=== PATIENT | female | born 1990 | race Caucasian/White ===

== ENCOUNTER 2016-02-08 18:08 | Emergency (ER) | payer MEDICAID ==
[~2016-02-08] VITALS: Ht 172.7 cm; Wt 55.0 kg
[~2016-02-08 18:08] MED LIST: NAPR500 PO; XANA0.5T PO; ZOFR4TAB3 SL
[2016-02-08 18:10] VITALS: BP 135/65; PULSE 98; RESP 14; TEMP 98.1; O2SAT 99
[2016-02-08 18:51] LABS: BACTERIA, URINE RARE /hpf; BLOOD, URINE LARGE (NEG); COMMENT (UR) CULT NOT INDICATED; CULTURE IF INDICATED CULT NOT INDICATED; GLUCOSE,URINE NEG (NEG); KETONE, URINE 150 mg/dL (NEG); MUCUS URINE MOD /lpf (OCC); NITRITE,URINE NEG (NEG); PH, URINE 5.5 (5.0-8.5); SQUAMOUS EPITHELIAL CELL URINE 1 /hpf (0-5); URINE COLOR YELLOW (YELLW/STRAW)
[2016-02-08 18:58] LABS: AUTOMATED NEUTROPHIL # 7.4 TH/MM3 (1.8-7.7); BASOPHIL % 0.3 % (0.0-2.0); EOSINOPHIL # 0.1 TH/MM3 (0-0.4); HEMATOCRIT 41.5 % (35.0-46.0); HEMO FLAGS DIFF FINAL; LYMPHOCYTE # 1.7 TH/MM3 (1.0-4.8); MEAN CELL VOLUME 88.8 FL (80.0-100.0); MEAN CORPUSCULAR HEMOGLOBIN 30.9 PG (27.0-34.0); MEAN CORPUSCULAR HGB CONC 34.8 % (32.0-36.0); MONO % 5.5 % (0.0-8.0); NEUT % 76.2 % (16.0-70.0); PLATELET COUNT 238 TH/MM3 (150-450); RED BLOOD COUNT 4.67 MIL/MM3 (4.00-5.30); RED CELL DISTRIBUTION WIDTH 12.3 % (11.6-17.2); WHITE BLOOD COUNT 9.8 TH/MM3 (4.0-11.0)
[2016-02-08 19:17] LABS: ANION GAP 9 MEQ/L (5-15); AST (GOT) 18 U/L (15-37); BLOOD UREA NITROGEN 10 MG/DL (7-18); CHLORIDE 104 MEQ/L (98-107); GLOMERULAR FILTRATION RATE 102 ML/MIN (>89); SODIUM (NA) 139 MEQ/L (136-145)
[2016-02-08 19:20] LABS: ALKALINE PHOSPHATASE 71 U/L (45-117); ALT (GPT) 20 U/L (10-53); TOTAL BILIRUBIN ADULT 1.8 MG/DL (0.2-1.0)
== END 2016-02-08 20:29 | disposition left against medical advice (07) ==
LOC: NED 18:08
DX: Z53.21 Procedure and treatment not carried out due to patient leaving prior to being seen by health care provider (principal)
CPT/HCPCS: 80053; 81001; 83690; 84703; 85025; 99281

== ENCOUNTER 2016-06-30 18:15 | Observation (INO) | payer MEDICAID, OTHER ==
[~2016-06-30] VITALS: Ht 172.7 cm; Wt 56.2 kg
[2016-06-30] VITALS (7 sets, daily range): BP systolic 94–125; BP diastolic 65–82; PULSE 68–96; RESP 16–18; TEMP 97.9; O2SAT 97–98
[2016-06-30] MEDS ORDERED: SODIUM CHLOR 0.9% 1000 ML INJ 1,000 ML IV SCH ×2 (18:42→23:05)
[2016-06-30] MEDS ORDERED: HYDROmorphone HCL PF 1 MG/ML VIAL IVS ONE (18:45)
[2016-06-30] MEDS ORDERED: SODIUM CHLORIDE 0.9% FLUSH 10 ML FLUSH IV FLUSH PRN ×2 (18:45→23:15)
[2016-06-30] MEDS ORDERED: ONDANSETRON HCL 4 MG/2 ML VIAL IVP ONE (18:45)
[2016-06-30 18:56] LABS: BLOOD, URINE LARGE (NEG); GLUCOSE,URINE NEG (NEG); KETONE, URINE TRACE mg/dL (NEG); NITRITE,URINE NEG (NEG)
[2016-06-30 19:00] LABS: MUCUS URINE MOD /lpf (OCC); URINE COLOR YELLOW (YELLW/STRAW)
[2016-06-30 19:01] LABS: COMMENT (UR) CULT NOT INDICATED; CULTURE IF INDICATED CULT NOT INDICATED; RBC, URINE 0-3 /hpf (0-3); SQUAMOUS EPITHELIAL CELL URINE 0-5 /hpf (0-5); WBC, URINE 0-2 /hpf (0-5)
[2016-06-30 19:09] LABS: AUTOMATED NEUTROPHIL # 9.5 TH/MM3 (1.8-7.7); BASOPHIL % 0.4 % (0.0-2.0); EOSINOPHIL # 0.1 TH/MM3 (0-0.4); HEMATOCRIT 43.9 % (35.0-46.0); HEMO FLAGS DIFF FINAL; LYMPH % 14.4 % (9.0-44.0); LYMPHOCYTE # 1.7 TH/MM3 (1.0-4.8); MEAN CELL VOLUME 87.7 FL (80.0-100.0); MEAN CORPUSCULAR HGB CONC 34.2 % (32.0-36.0); MONO % 3.8 % (0.0-8.0); NEUT % 80.4 % (16.0-70.0); PLATELET COUNT 318 TH/MM3 (150-450); RED BLOOD COUNT 5.01 MIL/MM3 (4.00-5.30); RED CELL DISTRIBUTION WIDTH 11.6 % (11.6-17.2); WHITE BLOOD COUNT 11.7 TH/MM3 (4.0-11.0)
--- NOTE | 2016-06-30 19:13 | PD ---
HPI Chief Complaint: GI Complaint Time Seen by Provider: 18:42 Travel History International Travel<30 days: No Contact w/Intl Traveler<30days: No Traveled to known affect area: No History of Present Illness HPI 25-year-old female patient presents to the ER today with 1 week history of cough , cold symptoms, followed by nausea, vomiting, and abdominal pains. She also has been having headaches. She denies any diarrhea, fevers, or other symptoms. Patient states that she is having multiple episodes of vomiting, states that she had tried to deal with at home but cannot. Modifying Factors: None Associated Signs & Symptoms: Nausea, vomiting, abdominal pains, headaches Risk Factors: None PFSH Past Medical History Diminished Hearing: No Musculoskeletal: Yes (KNEE ISSUES) Influenza Vaccination: Yes ?: Unknown LMP: NOW MIRENA : 2 Para: 2 Social History Alcohol Use: No Tobacco Use: No Substance Use: No Allergies-Medications (Allergen,Severity, Reaction): Coded Allergies: No Known Allergies (Verified , 06/30/16) Reported Meds & Prescriptions Reported Meds & Active Scripts Active No Active Prescriptions or Reported Medications Review of Systems Except as stated in HPI: all other systems reviewed are Neg Physical Exam Narrative GENERAL: Well-developed thin young female patient who is currently in moderate distress. Awake and oriented 3. SKIN: Focused skin assessment warm/dry. HEAD: Atraumatic. Normocephalic. EYES: Pupils equal and round. No scleral icterus. No injection or drainage. ENT: No nasal bleeding or discharge. Mucous membranes pink and moist. NECK: Trachea midline. No JVD. CARDIOVASCULAR: Regular rate and rhythm. No murmur appreciated. RESPIRATORY: No accessory muscle use. Clear to auscultation. Breath sounds equal bilaterally. GASTROINTESTINAL: Abdomen soft, right lower quadrant tenderness without guarding or rebound, nondistended. Hepatic and splenic margins not palpable. MUSCULOSKELETAL: No obvious deformities. No clubbing. No cyanosis. No edema. NEUROLOGICAL: Awake and alert. No obvious cranial nerve deficits. Motor grossly within normal limits. Normal speech. PSYCHIATRIC: Appropriate mood and affect; insight and judgment normal. Data Data Last Documented VS Vital Signs Date Time Temp Pulse Resp B/P Pulse Ox O2 Delivery O2 Flow Rate FiO2 06/30/16 18:25 97.9 94 16 116/76 98 Orders Complete Blood Count With Diff (06/30/16 18:42) Comprehensive Metabolic Panel (06/30/16 18:42) Lipase (06/30/16 18:42) Urinalysis - C+S If Indicated (06/30/16 18:42) Ct Abd/Pel W Iv Contrast(Rout) (06/30/16 18:42) Iv Access Insert/Monitor (06/30/16 18:42) Ecg Monitoring (06/30/16 18:42) Oximetry (06/30/16 18:42) Ondansetron Inj (Zofran Inj) (06/30/16 18:45) Sodium Chlor 0.9% 1000 Ml Inj (Ns 1000 M (06/30/16 18:42) Sodium Chloride 0.9% Flush (Ns Flush) (06/30/16 18:45) Hydromorphone Pf Inj (Dilaudid Pf Inj) (06/30/16 18:45) Ed Urine Pregnancytest Poc (06/30/16 18:42) Labs Laboratory Tests Test 06/30/16 06/30/16 18:45 18:50 Urine Color YELLOW Urine Turbidity CLEAR Urine pH 6.0 Urine Specific [place] 1.023 Urine Protein NEG mg/dL Urine Glucose (UA) NEG mg/dL Urine Ketones TRACE mg/dL Urine Occult Blood LARGE Urine Nitrite NEG Urine Bilirubin NEG Urine Leukocyte Esterase NEG Urine RBC 0-3 /hpf Urine WBC 0-2 /hpf Urine Squamous Epithelial 0-5 /hpf Cells Urine Mucus MOD /lpf Microscopic Urinalysis Comment CULT NOT INDICATED White Blood Count 11.7 TH/MM3 Red Blood Count 5.01 MIL/MM3 Hemoglobin 15.0 GM/DL Hematocrit 43.9 % Mean Corpuscular Volume 87.7 FL Mean Corpuscular Hemoglobin 30.0 PG Mean Corpuscular Hemoglobin 34.2 % Concent Red Cell Distribution Width 11.6 % Platelet Count 318 TH/MM3 Mean Platelet Volume 7.3 FL Neutrophils (%) (Auto) 80.4 % Lymphocytes (%) (Auto) 14.4 % Monocytes (%) (Auto) 3.8 % Eosinophils (%) (Auto) 1.0 % Basophils (%) (Auto) 0.4 % Neutrophils # (Auto) 9.5 TH/MM3 Lymphocytes # (Auto) 1.7 TH/MM3 Monocytes # (Auto) 0.4 TH/MM3 Eosinophils # (Auto) 0.1 TH/MM3 Basophils # (Auto) 0.0 TH/MM3 CBC Comment DIFF FINAL Differential Comment Sodium Level 143 MEQ/L Potassium Level 3.6 MEQ/L Chloride Level 106 MEQ/L MDM Medical Decision Making Medical Screen Exam Complete: Yes Emergency Medical Condition: Yes Medical Record Reviewed: Yes Differential Diagnosis Nausea, vomiting, right lower quadrant abdominal pains, headachesviral syndrome versus dehydration versus metabolic issues versus gastroenteritis versus appendicitis versus UTI/pyelonephritis Narrative Course IV fluids, pain medications, lab work, and CAT scans were ordered for the patient. Physician Communication Physician Communication Case is signed out to Dr. Gutierrez at 7 PM pending workup. Disposition based on workup. Diagnosis Primary Impression: Nausea and vomiting Scripts No Active Prescriptions or Reported Meds Stephan Radford MD June 30, 2016 19:13
[2016-06-30 19:14] LABS: CHLORIDE 106 MEQ/L (98-107); POTASSIUM 3.6 MEQ/L (3.5-5.1); SODIUM (NA) 143 MEQ/L (136-145)
--- NOTE | 2016-06-30 19:17 | PD ---
Physical Exam Date Seen by Provider: June 30, 2016 Time Seen by Provider: 19:15 Narrative accepted in transfer of care from Dr Radford GENERAL: Well developed well-nourished female in obvious discomfort and no respiratory distress. CARDIOVASCULAR: Regular rate and rhythm without murmurs, gallops, or rubs. RESPIRATORY: Breath sounds equal bilaterally. No accessory muscle use. GASTROINTESTINAL: Abdomen soft, reproducible right lower quadrant tenderness with voluntary guarding or rebound, nondistended. . Data Data Last Documented VS Vital Signs Date Time Temp Pulse Resp B/P Pulse Ox O2 Delivery O2 Flow Rate FiO2 06/30/16 22:55 68 17 125/82 97 Room Air 06/30/16 18:25 97.9 Orders Complete Blood Count With Diff (06/30/16 18:42) Comprehensive Metabolic Panel (06/30/16 18:42) Lipase (06/30/16 18:42) Urinalysis - C+S If Indicated (06/30/16 18:42) Ct Abd/Pel W Iv Contrast(Rout) (06/30/16 18:42) Iv Access Insert/Monitor (06/30/16 18:42) Ecg Monitoring (06/30/16 18:42) Oximetry (06/30/16 18:42) Ondansetron Inj (Zofran Inj) (06/30/16 18:45) Sodium Chlor 0.9% 1000 Ml Inj (Ns 1000 M (06/30/16 18:42) Sodium Chloride 0.9% Flush (Ns Flush) (06/30/16 18:45) Hydromorphone Pf Inj (Dilaudid Pf Inj) (06/30/16 18:45) Ed Urine Pregnancytest Poc (06/30/16 18:42) Ondansetron Inj (Zofran Inj) (06/30/16 20:00) Iohexol 350 Inj (Omnipaque 350 Inj) (06/30/16 20:00) Metoclopramide Inj (Reglan Inj) (06/30/16 21:00) Hydromorphone Pf Inj (Dilaudid Pf Inj) (06/30/16 21:00) Sodium Chlorid 0.9% 500 Ml Inj (Ns 500 M (06/30/16 21:00) NPO (06/30/16 20:55) Us Abdomen Gallbladder (06/30/16 ) Us Pelvis Comp W Doppler (06/30/16 ) Promethazine Supp (Phenergan Supp) (06/30/16 22:45) D5-Ns + Kcl 20 Meq Inj (D5-Ns + Kcl 20 M (06/30/16 22:45) Place In Observation (06/30/16 ) Vital Signs (Adult) Q4H (06/30/16 23:05) Activity Oob With Assistance (06/30/16 23:05) Dinkey Engine Operator / Telemetry .CONTINUOUS (06/30/16 23:05) Diet Npo (07/01/16 Breakfast) Sodium Chlor 0.9% 1000 Ml Inj (Ns 1000 M (06/30/16 23:05) Sodium Chloride 0.9% Flush (Ns Flush) (06/30/16 23:15) Sodium Chloride 0.9% Flush (Ns Flush) (07/01/16 09:00) Ondansetron Inj (Zofran Inj) (06/30/16 23:15) Comprehensive Metabolic Panel (07/01/16 06:00) Complete Blood Count With Diff (07/01/16 06:00) Lipase (07/01/16 06:00) Naloxone Inj (Narcan Inj) (06/30/16 23:15) Metoclopramide Inj (Reglan Inj) (06/30/16 23:15) Admit Order (Ed Use Only) (06/30/16 ) ^ Saline Lock (06/30/16 23:07) Resp Oxygen Matthew C Titrat 1-4 L (06/30/16 ) Notify Dr: Other (06/30/16 23:07) Sodium Chloride 0.9% Flush (Ns Flush) (07/01/16 09:00) Sodium Chloride 0.9% Flush (Ns Flush) (06/30/16 23:15) Consult General Surgery (06/30/16 23:07) Labs Laboratory Tests Test 06/30/16 06/30/16 18:45 18:50 Urine Color YELLOW Urine Turbidity CLEAR Urine pH 6.0 Urine Specific [place] 1.023 Urine Protein NEG mg/dL Urine Glucose (UA) NEG mg/dL Urine Ketones TRACE mg/dL Urine Occult Blood LARGE Urine Nitrite NEG Urine Bilirubin NEG Urine Leukocyte Esterase NEG Urine RBC 0-3 /hpf Urine WBC 0-2 /hpf Urine Squamous Epithelial 0-5 /hpf Cells Urine Mucus MOD /lpf Microscopic Urinalysis Comment CULT NOT INDICATED White Blood Count 11.7 TH/MM3 Red Blood Count 5.01 MIL/MM3 Hemoglobin 15.0 GM/DL Hematocrit 43.9 % Mean Corpuscular Volume 87.7 FL Mean Corpuscular Hemoglobin 30.0 PG Mean Corpuscular Hemoglobin 34.2 % Concent Red Cell Distribution Width 11.6 % Platelet Count 318 TH/MM3 Mean Platelet Volume 7.3 FL Neutrophils (%) (Auto) 80.4 % Lymphocytes (%) (Auto) 14.4 % Monocytes (%) (Auto) 3.8 % Eosinophils (%) (Auto) 1.0 % Basophils (%) (Auto) 0.4 % Neutrophils # (Auto) 9.5 TH/MM3 Lymphocytes # (Auto) 1.7 TH/MM3 Monocytes # (Auto) 0.4 TH/MM3 Eosinophils # (Auto) 0.1 TH/MM3 Basophils # (Auto) 0.0 TH/MM3 CBC Comment DIFF FINAL Differential Comment Sodium Level 143 MEQ/L Potassium Level 3.6 MEQ/L Chloride Level 106 MEQ/L Carbon Dioxide Level 28.3 MEQ/L Anion Gap 9 MEQ/L Blood Urea Nitrogen 10 MG/DL Creatinine 0.77 MG/DL Estimat Glomerular Filtration 91 ML/MIN Rate Random Glucose 109 MG/DL Calcium Level 9.3 MG/DL Total Bilirubin 1.0 MG/DL Aspartate Amino Transf 21 U/L (AST/SGOT) Alanine Aminotransferase 24 U/L (ALT/SGPT) Alkaline Phosphatase 59 U/L Total Protein 8.1 GM/DL Albumin 4.3 GM/DL Lipase 107 U/L [facility] Medical Record Reviewed: Yes Supervised Visit with CAROLINE: No Interpretation(s) Vital Signs Date Time Temp Pulse Resp B/P Pulse Ox O2 Delivery O2 Flow Rate FiO2 06/30/16 20:40 84 16 117/74 98 Room Air 06/30/16 20:00 82 18 111/70 98 Room Air 06/30/16 19:41 16 06/30/16 19:16 90 18 94/65 98 Room Air 06/30/16 18:25 97.9 94 16 116/76 98 Last Impressions Abdomen/Pelvis CT 06/30/16 0472 Signed Impressions: Service Date/Time: June 19:42 - CONCLUSION: 1. Nonspecific mild hepatomegaly. 2. Pericholecystic fluid without perceptible significant wall thickening. Potentially some sludge or small stones but no evidence of biliary obstruction. 3. 32 mm benign-appearing right adnexal cyst. Wojciech Linares MD Pelvis Ultrasound 06/30/16 0000 Signed Impressions: Service Date/Time: June 21:54 - CONCLUSION: Benign- appearing cyst of the right ovary. If felt clinically indicated, followup pelvic ultrasound in 8-12 weeks suggested to confirm resolution. Otherwise normal study. No torsion. No free fluid. Wojciech Linares MD Gall Bladder Ultrasound 06/30/16 0000 Signed Impressions: Service Date/Time: June 21:45 - CONCLUSION: Small pericholecystic fluid, nonspecific but without wall thickening or sonographic Parada's sign. No stone or ductal dilatation demonstrated. Mild nonspecific hepatomegaly. Wojciech Linares MD CBC & BMP Diagram 06/30/16 18:50 Vital Signs Date Time Temp Pulse Resp B/P Pulse Ox O2 Delivery O2 Flow Rate FiO2 06/30/16 20:40 84 16 117/74 98 Room Air 06/30/16 20:00 82 18 111/70 98 Room Air 06/30/16 19:41 16 06/30/16 19:16 90 18 94/65 98 Room Air 06/30/16 18:25 97.9 94 16 116/76 98 Differential Diagnosis accepted in transfer of care from Dr Radford; please refer to her dictation Narrative Course accepted in transfer of care from Dr Radford; for follow up of pending labs, CT, medication response, and disposition Patient has received order for Dilaudid 1 mg IV Zofran 4 mg IV and 1 L normal saline bolus Lab values pending patient continues complaining of nausea additional Zofran 4 mg administered Lab values grossly in normal range except for mild left shift 80% neutrophils by automated differential; noeov-[id number] test is negative CT abdomen and pelvis resulted per reading radiologist some gallbladder sludge and possible mild pericholecystic fluid otherwise no acute findings of except for right ovarian cyst; patient reexamined continues to complain of localized right lower quadrant pain and has reproducible right lower quadrant tenderness no right upper quadrant tenderness and no clinical Parada sign. Transvaginal pelvic ultrasound ordered along with Doppler to assess for ovarian torsion in view of report of mild pericholecystic fluid will add gallbladder ultrasound as well. Patient given additional Dilaudid 0.5 mg IV along with 500 cc normal saline as well as Reglan 10 mg IV and remains nothing by mouth. Pelvic exam performed: Normal external exam no redness induration or lesions; speculum exam scant dark blood no clots no tissue cervical os closed no IUD string noted; bimanual exam tenderness to palpation right adnexa no cervical motion tenderness bilaterally no adnexal masses to palpation. Patient with ultrasound studies pending plan for observation admission with consult to general surgery will keep patient on IV fluids pain management subsequently nothing by mouth and IV antibiotics. @ 22:35 she studies resulted no torsion mild pericholecystic fluid without, wall thickening or ductal dilatation. Case discussed with on-call medicine patient remains afebrile in the emergency department medicine agrees to the patient for intractable vomiting and nausea with possible early cholecystitis Dr Garcia requests no blood cultures or antibiotic administration for medicine until patient does evidence of temperature elevation/fever which time blood cultures will be obtained and start antibiotic per Dr Garcia. Patient is aware of plan for OBS admission and is agreeable to stay. Physician Communication Physician Communication call placed to General surgery -- discussed with Dr Lee--agrees w US will see in consultation admit to MED; discussed with Dr Garcia will OBS admit Diagnosis Primary Impression: Nausea and vomiting Qualified Code: R11.2 - Intractable vomiting with nausea, unspecified vomiting type Admitting Information Admitting Physician Requests: Observation Scripts No Active Prescriptions or Reported Meds Keke Gutierrez MD June 30, 2016 19:17
[2016-06-30 19:18] LABS: ANION GAP 9 MEQ/L (5-15); BICARBONATE 28.3 MEQ/L (21.0-32.0); BLOOD UREA NITROGEN 10 MG/DL (7-18)
[2016-06-30 19:20] LABS: ALT (GPT) 24 U/L (10-53)
[2016-06-30 19:21] LABS: AST (GOT) 21 U/L (15-37); GLOMERULAR FILTRATION RATE 91 ML/MIN (>89)
[2016-06-30 19:23] LABS: ALKALINE PHOSPHATASE 59 U/L (45-117)
[2016-06-30] MEDS ORDERED: IOHEXOL 350 MG/ML 10 ML VIAL (for RAD DIAG) IV ONE (20:00)
[2016-06-30] MEDS ORDERED: ONDANSETRON HCL 4 MG/2 ML VIAL IV PUSH ONE (20:00)
--- NOTE | 2016-06-30 20:14 | RADHPO ---
EXAM DATE/TIME: 06/30/2016 19:42 [facility] COMPARISON: No previous studies available for comparison. INDICATIONS : Abdominal cramping. Nausea and vomiting. IV CONTRAST: 100 cc Omnipaque 350 (iohexol) IV ORAL CONTRAST: No oral contrast ingested. RADIATION DOSE: 5.68 CTDIvol (mGy) MEDICAL HISTORY : None SURGICAL HISTORY : Intrauterine device. ENCOUNTER: Initial ACUITY: 2 days PAIN SCALE: 5/10 LOCATION: Bilateral upper quadrant TECHNIQUE: Volumetric scanning of the abdomen and pelvis was performed. Using automated exposure control and ad justment of the mA and/or kV according to patient size, radiation dose was kept as low as reasonably achievable to obtain optimal diagnostic quality images. FINDINGS: LOWER LUNGS: The visualized lower lungs are clear. LIVER: Liver is mildly enlarged, measures approximately 20 cm craniocaudal. There is focal fatty infiltratio n adjacent to the falciform ligament. No focal hepatic lesion demonstrated. Mild periportal edema is demonstrated. Pericholecystic fluid is noted. I don't see that the wall is clearly thickened or signi ficantly inflamed. Slightly higher attenuation dependently within the gallbladder lumen suggesting th e possibility of sludge or even small gravel-like stones. No large calculus demonstrated. There is no ductal dilatation seen. SPLEEN: Normal size without lesion. PANCREAS: Within normal limits. KIDNEYS: Normal in size and shape. There is no mass, stone or hydronephrosis. ADRENAL GLANDS: Within normal limits. VASCULAR: There is no aortic aneurysm. BOWEL/MESENTERY: The stomach, small bowel, and colon demonstrate no acute abnormality. There is no free intraperitone al air or fluid. ABDOMINAL WALL: Within normal limits. RETROPERITONEUM: There is no lymphadenopathy. BLADDER: No wall thickening or mass. REPRODUCTIVE: There is a 32 mm cyst of the right ovary. No free fluid seen in the pelvic cavity. IUD present. INGUINAL: There is no lymphadenopathy or hernia. MUSCULOSKELETAL: Within normal limits for patient age. CONCLUSION: 1. Nonspecific mild hepatomegaly. 2. Pericholecystic fluid without perceptible significant wall thickening. Potentially some sludge or small stones but no evidence of biliary obstruction. 3. 32 mm benign-appearing right adnexal cyst. Wojciech Linares MD on June 30, 2016 at 20:08 Board Certified Radiologist. This report was verified electronically.
[2016-06-30] MEDS ORDERED: METOCLOPRAMIDE HCL 10 MG/2 ML VIAL IV PUSH ONE (21:00)
[2016-06-30] MEDS ORDERED: HYDROmorphone HCL PF 1 MG/ML VIAL IV PUSH ONE (21:00)
[2016-06-30] MEDS ORDERED: SODIUM CHLORID 0.9% 500 ML INJ 500 ML IV ONE (21:00)
--- NOTE | 2016-06-30 22:15 | RADHPO ---
EXAM DATE/TIME: 06/30/2016 21:45 [facility] COMPARISON: CT ABDOMEN & PELVIS W CONTRAST, June 30, 2016, 19:42. INDICATIONS : Right upper quadrant pain. Nausea and vomiting. MEDICAL HISTORY : Right upper quadrant pain. SURGICAL HISTORY : None. ENCOUNTER: Initial ACUITY: 1 week PAIN SCORE: 4/10 LOCATION: Right upper quadrant MEASUREMENTS: LIVER: 18.1 cm length COMMON DUCT: 2 mm RIGHT KIDNEY: 11.5 x 3.9 x 6.2 cm FINDINGS: LIVER: Normal echotexture without focal lesion or ductal dilatation. COMMON DUCT: No intraluminal mass or stone visualized. GALLBLADDER: Small pericholecystic fluid noted, mainly in between the gallbladder and liver. No gallbladder wall t hickening. No sludge or stones seen. Negative sonographic Parada's sign. PANCREAS: The visualized portions are within normal limits. RIGHT KIDNEY: No evidence of hydronephrosis, stone, or mass. CONCLUSION: Small pericholecystic fluid, nonspecific but without wall thickening or sonographic Parada's sign. No stone or ductal dilatation demonstrated. Mild nonspecific hepatomegaly. Wojciech Linares MD on June 30, 2016 at 22:11 Board Certified Radiologist. This report was verified electronically.
--- NOTE | 2016-06-30 22:21 | RADHPO ---
EXAM DATE/TIME: 06/30/2016 21:54 [facility] COMPARISON: US ABDOMEN - GALLBLADDER, June 30, 2016, 21:45. CT ABDOMEN & PELVIS W CONTRAST, June 30, 2016, 19:42. INDICATIONS : Pelvic pain. MEDICAL HISTORY : Pelvic pain. SURGICAL HISTORY : None. ENCOUNTER: Initial ACUITY: 1 week PAIN SCORE: 5/10 LOCATION: Right pelvis MEASUREMENTS: UTERUS: 7.1 x 2.9 x 5.4 cm ENDOMETRIAL STRIPE: 8 mm RIGHT OVARY: 3.8 x 4.0 x 3.6 cm LEFT OVARY: 3.1 x 2.7 x 1.9 cm FINDINGS: UTERUS: The myometrium has homogeneous echotexture without mass. IUD present. RIGHT OVARY: There is a right ovarian cyst that measures 3.2 x 2.7 x 2.8 cm. Blood flow demonstrated within the ov starr parenchyma. LEFT OVARY: Ovary contains no mass or significant cystic lesion.There is blood flow to the left ovary. MISCELLANEOUS: No free fluid. CONCLUSION: Benign-appearing cyst of the right ovary. If felt clinically indicated, followup pelvic ultrasound in 8-12 weeks suggested to confirm resolution. Otherwise normal study. No torsion. No free fluid. Wojciech Linares MD on June 30, 2016 at 22:17 Board Certified Radiologist. This report was verified electronically.
[2016-06-30] MEDS ORDERED: D5-NS + KCL 20 MEQ INJ 1,000 ML IV SCH (22:45)
[2016-06-30] MEDS ORDERED: PROMETHAZINE HCL 25 MG SUPP RECTAL ONE (22:45)
[2016-06-30] MEDS ORDERED: METOCLOPRAMIDE HCL 10 MG/2 ML VIAL IV PUSH PRN (23:15)
[2016-06-30] MEDS ORDERED: NALOXONE HCL 0.4 MG/ML AMP IV PRN (23:15)
[2016-06-30] MEDS ORDERED: SODIUM CHLORIDE 0.9% FLUSH 10 ML FLUSH IVF PRN (23:15)
[2016-07-01] VITALS (12 sets, daily range): BP systolic 100–136; BP diastolic 69–86; PULSE 62–88; RESP 17–20; TEMP 96.6–97.9; O2SAT 98–100
[2016-07-01] MEDS: ONDANSETRON HCL 4 MG/2 ML VIAL IVP PRN ×2 (01:08→19:26)
[2016-07-01 06:51] LABS: CHLORIDE 109 MEQ/L (98-107); POTASSIUM 3.8 MEQ/L (3.5-5.1); SODIUM (NA) 143 MEQ/L (136-145)
[2016-07-01 06:58] LABS: BASOPHIL % 0.4 % (0.0-2.0); EOSINOPHIL % 0.5 % (0.0-4.0); HEMATOCRIT 38.5 % (35.0-46.0); HEMO FLAGS DIFF FINAL; LYMPH % 13.1 % (9.0-44.0); LYMPHOCYTE # 1.2 TH/MM3 (1.0-4.8); MEAN CORPUSCULAR HEMOGLOBIN 30.3 PG (27.0-34.0); MONO % 3.2 % (0.0-8.0); NEUT % 82.8 % (16.0-70.0); PLATELET COUNT 294 TH/MM3 (150-450); RED BLOOD COUNT 4.32 MIL/MM3 (4.00-5.30); RED CELL DISTRIBUTION WIDTH 11.9 % (11.6-17.2); WHITE BLOOD COUNT 9.5 TH/MM3 (4.0-11.0)
[2016-07-01 06:59] LABS: AST (GOT) 14 U/L (15-37)
[2016-07-01 07:04] LABS: ALKALINE PHOSPHATASE 47 U/L (45-117); ALT (GPT) 18 U/L (10-53); ANION GAP 7 MEQ/L (5-15); BICARBONATE 27.4 MEQ/L (21.0-32.0); BLOOD UREA NITROGEN 9 MG/DL (7-18); GLOMERULAR FILTRATION RATE 129 ML/MIN (>89); TOTAL BILIRUBIN ADULT 1.1 MG/DL (0.2-1.0)
[2016-07-01] MEDS: SODIUM CHLORIDE 0.9% FLUSH 10 ML FLUSH IV FLUSH SCH ×2 (09:00→22:05)
[2016-07-01] MEDS ORDERED: SODIUM CHLORIDE 0.9% FLUSH 10 ML FLUSH IV FLUSH SCH (09:00)
--- NOTE | 2016-07-01 09:12 | PD.CONS ---
cc: Jamie Lee MD HPI Service General Surgery Consult Requested By Dr. Gutierrez Reason for Consult Evaluation of abdominal pain Primary Care Physician No Primary Care Physician History of Present Illness This is a 25-year-old female with no past medical history or surgical history. She developed cold-like symptoms and abdominal pain approximately 1 week ago. She reports chills and subjective fevers. She was unable to take her temperature at home as she does not have a thermometer. She comes to the emergency department for evaluation of her abdominal pain which has not resolved over the past week. The pain was a 9/10, sharp, located right lower quadrant, worse with movement, better with pain meds. A pelvic ultrasound was obtained which showed a benign-appearing right ovarian cyst. A gallbladder ultrasound was also obtained which showed a small amount of pericholecystic fluid without wall thickening or sign of radiographic Parada sign. A CT abdomen and pelvis was also obtained which showed pericholecystic fluid without wall thickening, sludge and small stones with no biliary obstruction. Her white blood cell count is 9.5. Her total bilirubin is only mildly elevated at 1.1. A General Surgery consultation has been requested for evaluation of abdominal pain. Review of Systems Constitutional: COMPLAINS OF: Fatigue, Chills Endocrine: DENIES: Polydipsia, Polyuria, Polyphagia Eyes: DENIES: Blurred vision, Diplopia Ears, nose, mouth, throat: DENIES: Hearing loss Respiratory: DENIES: Apneas Cardiovascular: DENIES: Chest pain, Syncope Gastrointestinal: COMPLAINS OF: Abdominal pain, Nausea Genitourinary: DENIES: Urinary frequency, Urinary incontinence Musculoskeletal: DENIES: Joint pain Integumentary: DENIES: Abnormal pigmentation Hematologic/lymphatic: DENIES: Bruising Immunologic/allergic: DENIES: Eczema Neurologic: DENIES: Abnormal gait, Headache Psychiatric: DENIES: Confusion, Mood changes, Depression Past Family Social History Past Medical History None Past Surgical History None Reported Medications None Allergies: Coded Allergies: Percocet (Verified Allergy, Severe, SEIZURE, 07/10/16) Active Ordered Medications Current Medications Medications (Trade) Dose Ordered Sig/Vicenta Route Start Time Stop Time Status Last Admin (NS 1000 ml Inj) 1,000 ml @ 100 mls/hr Q10H IV 06/30/16 23:05 06/30/16 23:12 (NS Flush) 2 ml UNSCH PRN IV FLUSH 06/30/16 23:15 (NS Flush) 2 ml BID IV FLUSH 07/01/16 09:00 (Zofran Inj) 4 mg Q6H PRN IVP 06/30/16 23:15 07/01/16 01:08 (Narcan Inj) 0.4 mg UNSCH PRN IV 06/30/16 23:15 (Reglan Inj) 10 mg Q8H PRN IV PUSH 06/30/16 23:15 Family History Noncontributory Social History Denies tobacco use Denies EtOH use Denies illicit drug use Physical Exam Vital Signs Vital Signs Date Time Temp Pulse Resp B/P Pulse Ox O2 Delivery O2 Flow Rate FiO2 07/01/16 08:00 96.6 71 20 102/69 100 07/01/16 03:45 97.3 62 20 117/82 100 07/01/16 03:27 86 07/01/16 03:23 75 17 110/70 07/01/16 01:10 88 17 110/72 99 Room Air 06/30/16 23:12 98 06/30/16 22:55 68 17 125/82 97 Room Air 06/30/16 21:42 16 06/30/16 21:35 96 18 115/78 98 Room Air 06/30/16 20:40 84 16 117/74 98 Room Air 06/30/16 20:00 82 18 111/70 98 Room Air 06/30/16 19:41 16 06/30/16 19:16 90 18 94/65 98 Room Air 06/30/16 18:25 97.9 94 16 116/76 98 Physical Exam GENERAL: 25-year-old female resting in bed in no acute distress SKIN: Warm and dry. HEAD: Atraumatic. Normocephalic. EYES: Pupils equal and round. No scleral icterus. No injection or drainage. ENT: No nasal bleeding or discharge. Mucous membranes pink and moist. NECK: Trachea midline. CARDIOVASCULAR: Regular rate and rhythm. RESPIRATORY: No accessory muscle use. Clear to auscultation. Breath sounds equal bilaterally. GASTROINTESTINAL: Abdomen soft, nondistended. Right upper quadrant and right lower quadrant tenderness with palpation. No visible scars on abdomen. MUSCULOSKELETAL: Extremities without clubbing, cyanosis, or edema. No obvious deformities. NEUROLOGICAL: Awake and alert. No obvious cranial nerve deficits. Motor grossly within normal limits. Five out of 5 muscle strength in the arms and legs. Normal speech. PSYCHIATRIC: Appropriate mood and affect; insight and judgment normal. Laboratory Laboratory Tests Test 06/30/16 06/30/16 07/01/16 18:45 18:50 05:47 Urine Color YELLOW Urine Turbidity CLEAR Urine pH 6.0 Urine Specific [place] 1.023 Urine Protein NEG Urine Glucose (UA) NEG Urine Ketones TRACE Urine Occult Blood LARGE Urine Nitrite NEG Urine Bilirubin NEG Urine Leukocyte Esterase NEG Urine RBC 0-3 Urine WBC 0-2 Urine Squamous Epithelial 0-5 Cells Urine Mucus MOD Microscopic Urinalysis Comment CULT NOT INDICATED White Blood Count 11.7 9.5 Red Blood Count 5.01 4.32 Hemoglobin 15.0 13.1 Hematocrit 43.9 38.5 Mean Corpuscular Volume 87.7 89.0 Mean Corpuscular Hemoglobin 30.0 30.3 Mean Corpuscular Hemoglobin 34.2 34.0 Concent Red Cell Distribution Width 11.6 11.9 Platelet Count 318 294 Mean Platelet Volume 7.3 7.4 Neutrophils (%) (Auto) 80.4 82.8 Lymphocytes (%) (Auto) 14.4 13.1 Monocytes (%) (Auto) 3.8 3.2 Eosinophils (%) (Auto) 1.0 0.5 Basophils (%) (Auto) 0.4 0.4 Neutrophils # (Auto) 9.5 8.0 Lymphocytes # (Auto) 1.7 1.2 Monocytes # (Auto) 0.4 0.3 Eosinophils # (Auto) 0.1 0.0 Basophils # (Auto) 0.0 0.0 CBC Comment DIFF FINAL DIFF FINAL Differential Comment Sodium Level 143 143 Potassium Level 3.6 3.8 Chloride Level 106 109 Carbon Dioxide Level 28.3 27.4 Anion Gap 9 7 Blood Urea Nitrogen 10 9 Creatinine 0.77 0.57 Estimat Glomerular Filtration 91 129 Rate Random Glucose 109 104 Calcium Level 9.3 8.1 Total Bilirubin 1.0 1.1 Aspartate Amino Transf 21 14 (AST/SGOT) Alanine Aminotransferase 24 18 (ALT/SGPT) Alkaline Phosphatase 59 47 Total Protein 8.1 6.1 Albumin 4.3 3.1 Lipase 107 69 Imaging Last 48 hours Impressions Abdomen/Pelvis CT 06/30/16 1842 Signed Impressions: Service Date/Time: June 19:42 - CONCLUSION: 1. Nonspecific mild hepatomegaly. 2. Pericholecystic fluid without perceptible significant wall thickening. Potentially some sludge or small stones but no evidence of biliary obstruction. 3. 32 mm benign-appearing right adnexal cyst. Wojciech Linares MD Pelvis Ultrasound 06/30/16 0000 Signed Impressions: Service Date/Time: June 21:54 - CONCLUSION: Benign- appearing cyst of the right ovary. If felt clinically indicated, followup pelvic ultrasound in 8-12 weeks suggested to confirm resolution. Otherwise normal study. No torsion. No free fluid. Wojciech Linares MD Gall Bladder Ultrasound 06/30/16 0000 Signed Impressions: Service Date/Time: June 21:45 - CONCLUSION: Small pericholecystic fluid, nonspecific but without wall thickening or sonographic Parada's sign. No stone or ductal dilatation demonstrated. Mild nonspecific hepatomegaly. Wojciech Linares MD Assessment and Plan Assessment and Plan This is a 25-year-old female with cold-like symptoms and abdominal pain 7 days ; with RUQ pain and nausea -Nothing by mouth -Continue IV fluids -Hold all anticoagulation -Plan for laparoscopic cholecystectomy; possible open procedure; possible intraoperative cholangiogram for this afternoon -Thank you for this consult Discussed Condition With Ms. Kris Lee Attending Statement Patient seen at bedside CT reviewed very long liver with gallbladder in right lower quadrant discussed operative intervention including lap fe. Attestation The exam, history, and the medical decision-making described in the above note were completed with the assistance of the mid-level provider. I reviewed and agree with the findings presented. I attest that I had a [id number] encounter with the patient on the same day, and personally performed and documented my assessment and findings in the medical record. Dari Moreira July 01, 2016 09:12 Jamie Lee MD Jul 11, 2016 21:55
--- NOTE | 2016-07-01 09:52 | HHI.HP ---
[facility] Primary Care Physician No Primary Care Physician Admission Diagnosis Intractable nausea/vomiting; possible cholecystitis Diagnoses: Chief Complaint: Abdominal pain, nausea and vomiting Travel History International Travel<30 Days: No Contact w/Intl Traveler <30 Da: No Traveled to Known Affected Are: No History of Present Illness The patient is a 25-year-old female who is presenting to the hospital with nausea and vomiting and abdominal pain. The patient says that for the past month she has been experiencing on and off pain on the right side of her abdomen. She says sometimes when she stands up or moves around she'll see a little bulge in the right lower quadrant of her abdomen. She describes the pain as cramping over the past month or so. Over the past week she has been having more severe pain as well as bouts of nausea and vomiting. Yesterday at work she got dizzy and then all of a sudden had nonstop vomiting. She denied any blood in the vomitus. She also mentioned that during her vomiting episode she noticed that she passed a blood clot vaginally. After that blood clot past she had continuous bleeding for 2 hours. She says she does not tend to have any vaginal bleeding since she had the Mirena IUD placed a few years ago. She also endorsed headaches associated with the nausea and vomiting episodes. She endorses chills and hot flashes on a daily basis. She says sometimes she gets bloodshot in her face. She also endorses diarrhea over the past week. She denies any blood in the stool and says that it is a light brown in color. Review of Systems Except as stated in HPI: all other systems reviewed are Neg Past Family Social History Past Medical History Migraines Two vaginal deliveries Allergies: Coded Allergies: No Known Allergies (Verified , 06/30/16) Active Ordered Medications Current Medications Medications (Trade) Dose Ordered Sig/Vicenta Route Start Time Stop Time Status Last Admin (NS 1000 ml Inj) 1,000 ml @ 100 mls/hr Q10H IV 06/30/16 23:05 06/30/16 23:12 (NS Flush) 2 ml UNSCH PRN IV FLUSH 06/30/16 23:15 (NS Flush) 2 ml BID IV FLUSH 07/01/16 09:00 (Zofran Inj) 4 mg Q6H PRN IVP 06/30/16 23:15 07/01/16 01:08 (Narcan Inj) 0.4 mg UNSCH PRN IV 06/30/16 23:15 (Reglan Inj) 10 mg Q8H PRN IV PUSH 06/30/16 23:15 Family History CAD CVA Social History The patient does not smoke, drink or use illicit substances. Physical Exam Vital Signs Vital Signs Date Time Temp Pulse Resp B/P Pulse Ox O2 Delivery O2 Flow Rate FiO2 07/01/16 08:00 96.6 71 20 102/69 100 07/01/16 03:45 97.3 62 20 117/82 100 07/01/16 03:27 86 07/01/16 03:23 75 17 110/70 07/01/16 01:10 88 17 110/72 99 Room Air 06/30/16 23:12 98 06/30/16 22:55 68 17 125/82 97 Room Air 06/30/16 21:42 16 06/30/16 21:35 96 18 115/78 98 Room Air 06/30/16 20:40 84 16 117/74 98 Room Air 06/30/16 20:00 82 18 111/70 98 Room Air 06/30/16 19:41 16 06/30/16 19:16 90 18 94/65 98 Room Air 06/30/16 18:25 97.9 94 16 116/76 98 Physical Exam GENERAL: This is a well-nourished, well-developed patient, in no apparent distress. SKIN: No rashes, ecchymoses or lesions. Cool and dry. HEAD: Atraumatic. Normocephalic. No temporal or scalp tenderness. EYES: Pupils equal round and reactive. Extraocular motions intact. No scleral icterus. No injection or drainage. ENT: Nose without bleeding, purulent drainage or septal hematoma. Throat without erythema, tonsillar hypertrophy or exudate. Uvula midline. Airway patent. NECK: Trachea midline. No JVD or lymphadenopathy. Supple, nontender, no meningeal signs. CARDIOVASCULAR: Regular rate and rhythm without murmurs, gallops, or rubs. RESPIRATORY: Clear to auscultation. Breath sounds equal bilaterally. No wheezes , rales, or rhonchi. GASTROINTESTINAL: Abdomen soft, tender below the umbilicus and in the RLQ, nondistended. No hepato-splenomegaly, or palpable masses. No guarding. MUSCULOSKELETAL: Extremities without clubbing, cyanosis, or edema. No joint tenderness, effusion, or edema noted. NEUROLOGICAL: Awake and alert. Cranial nerves II through XII intact. Motor and sensory grossly within normal limits. Five out of 5 muscle strength in all muscle groups. Normal speech. PSYCH: Mood and affect appropriate. Laboratory Laboratory Tests Test 06/30/16 06/30/16 07/01/16 18:45 18:50 05:47 Urine Color YELLOW Urine Turbidity CLEAR Urine pH 6.0 Urine Specific [place] 1.023 Urine Protein NEG Urine Glucose (UA) NEG Urine Ketones TRACE Urine Occult Blood LARGE Urine Nitrite NEG Urine Bilirubin NEG Urine Leukocyte Esterase NEG Urine RBC 0-3 Urine WBC 0-2 Urine Squamous Epithelial 0-5 Cells Urine Mucus MOD Microscopic Urinalysis Comment CULT NOT INDICATED White Blood Count 11.7 9.5 Red Blood Count 5.01 4.32 Hemoglobin 15.0 13.1 Hematocrit 43.9 38.5 Mean Corpuscular Volume 87.7 89.0 Mean Corpuscular Hemoglobin 30.0 30.3 Mean Corpuscular Hemoglobin 34.2 34.0 Concent Red Cell Distribution Width 11.6 11.9 Platelet Count 318 294 Mean Platelet Volume 7.3 7.4 Neutrophils (%) (Auto) 80.4 82.8 Lymphocytes (%) (Auto) 14.4 13.1 Monocytes (%) (Auto) 3.8 3.2 Eosinophils (%) (Auto) 1.0 0.5 Basophils (%) (Auto) 0.4 0.4 Neutrophils # (Auto) 9.5 8.0 Lymphocytes # (Auto) 1.7 1.2 Monocytes # (Auto) 0.4 0.3 Eosinophils # (Auto) 0.1 0.0 Basophils # (Auto) 0.0 0.0 CBC Comment DIFF FINAL DIFF FINAL Differential Comment Sodium Level 143 143 Potassium Level 3.6 3.8 Chloride Level 106 109 Carbon Dioxide Level 28.3 27.4 Anion Gap 9 7 Blood Urea Nitrogen 10 9 Creatinine 0.77 0.57 Estimat Glomerular Filtration 91 129 Rate Random Glucose 109 104 Calcium Level 9.3 8.1 Total Bilirubin 1.0 1.1 Aspartate Amino Transf 21 14 (AST/SGOT) Alanine Aminotransferase 24 18 (ALT/SGPT) Alkaline Phosphatase 59 47 Total Protein 8.1 6.1 Albumin 4.3 3.1 Lipase 107 69 Result Diagram: 07/01/16 0547 07/01/16 0547 Imaging Last Impressions Abdomen/Pelvis CT 06/30/16 1842 Signed Impressions: Service Date/Time: June 19:42 - CONCLUSION: 1. Nonspecific mild hepatomegaly. 2. Pericholecystic fluid without perceptible significant wall thickening. Potentially some sludge or small stones but no evidence of biliary obstruction. 3. 32 mm benign-appearing right adnexal cyst. Wojciech Linares MD Pelvis Ultrasound 06/30/16 0000 Signed Impressions: Service Date/Time: June 21:54 - CONCLUSION: Benign- appearing cyst of the right ovary. If felt clinically indicated, followup pelvic ultrasound in 8-12 weeks suggested to confirm resolution. Otherwise normal study. No torsion. No free fluid. Wojciech Linares MD Gall Bladder Ultrasound 06/30/16 0000 Signed Impressions: Service Date/Time: June 21:45 - CONCLUSION: Small pericholecystic fluid, nonspecific but without wall thickening or sonographic Parada's sign. No stone or ductal dilatation demonstrated. Mild nonspecific hepatomegaly. Wojciech Linares MD Assessment and Plan Assessment and Plan Abdominal pain/ Nausea and vomiting/ Vaginal bleeding The patient has right lower quadrant pain as well as significant nausea and vomiting. Imaging studies including ultrasound and CT scan demonstrated pericholecystic fluid, hepatomegaly and a right ovarian cyst. Total bilirubin elevated at 1.1. The patient says that during the severe episode of nausea and vomiting she had 2 hours of vaginal bleeding. She says she does not tend to have any vaginal bleeding with her IUD. General surgery consult appreciated. - Keep patient nothing by mouth with IV fluids. - INJECTION MOLDING PROCESS TECHNICIAN consult requested. - Pain control and antiemetics as needed. - trend LFTs. - PPI. Leukocytosis May be a stress reaction. The patient is afebrile. - Follow CBC. PPx: SCDs Code Status Full Discussed Condition With Patient Nir Solomon DO July 01, 2016 09:52
[2016-07-01] MEDS: DEXT 5%-NACL 0.45% 1000 ML INJ 1,000 ML IV SCH ×3 (11:07→23:06)
[2016-07-01] MEDS: PANTOPRAZOLE SODIUM 40 MG VIAL IV PUSH SCH ×2 (11:07→22:03)
[2016-07-01] MEDS ORDERED: PROPOFOL 200 MG/20 ML AMP IV ONE (11:36)
[2016-07-01] MEDS ORDERED: ONDANSETRON HCL 4 MG/2 ML VIAL IV PUSH ONE (11:37)
[2016-07-01] MEDS ORDERED: NEOSTIGMINE 3 MG/3 ML SYR IV ONE (11:37)
[2016-07-01] MEDS ORDERED: LIDOCAINE 1%/EPINEPHrine 1:100,000 SOLN 30 ML VIAL ONE (15:31)
[2016-07-01] MEDS ORDERED: BUPIVACAINE/EPINEPHRINE 0.5% PF 30 ML VIAL ONE (15:32)
[2016-07-01] MEDS ORDERED: MIDAZOLAM HCL 2 MG/2 ML VIAL ONE (15:56)
[2016-07-01] MEDS ORDERED: DEXAMETHASONE SOD PHOS 4 MG/ML VIAL ONE (15:57)
[2016-07-01] MEDS ORDERED: FAMOTIDINE 20 MG/2 ML VIAL ONE (15:57)
[2016-07-01] MEDS ORDERED: ceFAZolin 2 GM PREMIX 50 ML ONE (15:57)
[2016-07-01] MEDS ORDERED: ACETAMINOPHEN 1000 MG/100 ML VIAL IV ONE (16:04)
--- NOTE | 2016-07-01 16:27 | HHI.PR ---
Immediate Post Op Note Procedure Date: July 01, 2016 Pre Op Diagnosis: symptomatic cholelithiasis Post Op Diagnosis: same Surgeon: Jamie Lee MD [employer]person [employer](s): see or sheet Procedure: lap fe Findings: distended gallbladder, large liver Complications: none Specimen(s) removed: gallbladder Estimated blood loss: 5cc Anesthesia: General Drains: None Patient to: PACU Patient Condition: Good Jamie Lee MD July 01, 2016 16:26
[2016-07-01] MEDS ORDERED: HYDROmorphone HCL PF 1 MG/ML VIAL ONE (17:54)
[2016-07-01] MEDS: MORPHINE SULFATE 4 MG/ML INJ IV PUSH PRN ×2 (19:27→22:04)
--- NOTE | 2016-07-01 20:13 | MP ---
cc: JONES LEE MD DATE OF SURGERY: 07/01/2016. PREOPERATIVE DIAGNOSIS: Acute cholecystitis with cholelithiasis. POSTOPERATIVE DIAGNOSIS: Acute cholecystitis with cholelithiasis. OPERATIVE PROCEDURE PERFORMED: Laparoscopic cholecystectomy. SURGEON: Dr. Jones Lee. TRANSMISSION SPECIALIST: See OR sheet. ANESTHESIA: GETA. IV FLUIDS: See anesthesia sheet. ESTIMATED BLOOD LOSS: 5 cc. DRAINS: None. COMPLICATIONS: None. WOUND CLASSIFICATION: Clean/contaminated. SPECIMENS: Gallbladder. FINDINGS: A long distended gallbladder with thickening and very long liver without evidence of abnormality. INDICATIONS FOR THE PROCEDURE: The patient is a 25-year-old female who presented with an approximately one week history of subjective chills, subjective fevers and right upper quadrant abdominal pain. The pain was significant severe continued and persisted. She came to the emergency department with a CT scan showing pericholecystic fluid and thickening of the gallbladder wall, sludge and small stones. Decision was made for laparoscopic cholecystectomy. Discussed with the patient in detail. DESCRIPTION OF THE PROCEDURE IN DETAIL: The patient was taken the operating suite and placed in supine position. She was prepped and draped in the usual sterile fashion after induction of general endotracheal anesthesia. Brief time-out done stating correct patient, procedure, surgical site and all were in agreement with this. Attention was first directed to the umbilicus where a stab arline incision was made after local anesthetic injected.. This was done with an 11 blade. The Veress needle was used and intra-abdominal placement was confirmed with saline drop test. The abdomen was insufflated to 15 mm pneumoperitoneum. The Veress needle was changed for a 5-mm trocar. On cursory inspection, no evidence of injury. On inspection, the liver was noted to be very elongated. The gallbladder was also elongated sitting past the umbilicus. Three other ports placed: One 12 mm followed by two 5 mm in right subcostal and a 12 mm in the epigastric. The patient was placed in reverse Trendelenburg and planed to the left. The gallbladder fundus was grasped and retracted cephalad. The cystic duct and cystic artery were dissected out with the [place] grasper. Three clips were placed proximal on the cystic duct and one distal and two clips placed on the cystic artery and one distal. Endo-Lisa were used to transect the cystic duct and cystic artery. Electro Bovie cautery was used to dissect the gallbladder of the gallbladder bed. Hemostasis was obtained. There was no evidence of bleeding. The gallbladder was placed in the EndoCatch bag and removed from the epigastric port. The patient tolerated procedure well. No intraoperative complications. The ports were removed and the pneumoperitoneum removed and [id number] was placed to the epigastric port followed by 4-0 Monocryl and Steri-Strips and sterile dressings. The patient was then extubated and taken to the post-anesthesia care unit. All lap and instrument counts were correct. No intraoperative complication. MD PALLAVI Herrmann/AYNIV /6:06 PM /8:07 PM
[2016-07-02] MEDS: MORPHINE SULFATE 4 MG/ML INJ IV PUSH PRN ×5 (00:22→19:26)
[2016-07-02 00:57] VITALS: BP 103/68; PULSE 68; RESP 18; TEMP 97.9; O2SAT 99
[2016-07-02] MEDS: DEXT 5%-NACL 0.45% 1000 ML INJ 1,000 ML IV SCH ×2 (05:21→15:31)
--- NOTE | 2016-07-02 06:28 | HHI.PR ---
Subjective Subjective Notes no acute issues, c/o pain last night and nausea better this am Objective Vitals/I&O Vital Signs Date Time Temp Pulse Resp B/P Pulse Ox O2 Delivery O2 Flow Rate FiO2 07/02/16 00:57 97.9 68 18 103/68 99 07/01/16 18:25 Nasal Cannula 3 07/01/16 10:13 21 Radiology Last 48 hours Impressions Abdomen/Pelvis CT 06/30/16 1842 Signed Impressions: Service Date/Time: June 19:42 - CONCLUSION: 1. Nonspecific mild hepatomegaly. 2. Pericholecystic fluid without perceptible significant wall thickening. Potentially some sludge or small stones but no evidence of biliary obstruction. 3. 32 mm benign-appearing right adnexal cyst. Wojciech Linares MD Pelvis Ultrasound 06/30/16 0000 Signed Impressions: Service Date/Time: June 21:54 - CONCLUSION: Benign- appearing cyst of the right ovary. If felt clinically indicated, followup pelvic ultrasound in 8-12 weeks suggested to confirm resolution. Otherwise normal study. No torsion. No free fluid. Wojciech Linares MD Gall Bladder Ultrasound 06/30/16 0000 Signed Impressions: Service Date/Time: June 21:45 - CONCLUSION: Small pericholecystic fluid, nonspecific but without wall thickening or sonographic Parada's sign. No stone or ductal dilatation demonstrated. Mild nonspecific hepatomegaly. Wojciech Linares MD Cardiovascular: Regular Lungs: Clear Abdomen: Other (soft mild ttp incisional) A/P Assessment and Plan POD 1 Lap fe PLAN OOB Pain control advance to reg diet dvt ppx Jamie Lee MD July 02, 2016 06:28
[2016-07-02 07:24] LABS: HEMATOCRIT 38.9 % (35.0-46.0); MEAN CORPUSCULAR HEMOGLOBIN 30.6 PG (27.0-34.0); MEAN CORPUSCULAR HGB CONC 34.1 % (32.0-36.0); PLATELET COUNT 249 TH/MM3 (150-450); RED BLOOD COUNT 4.32 MIL/MM3 (4.00-5.30); RED CELL DISTRIBUTION WIDTH 12.2 % (11.6-17.2); WHITE BLOOD COUNT 10.4 TH/MM3 (4.0-11.0)
[2016-07-02 07:31] LABS: POTASSIUM 3.5 MEQ/L (3.5-5.1)
[2016-07-02 07:35] LABS: REVIEW FLAG FINAL
[2016-07-02 07:36] LABS: BICARBONATE 30.4 MEQ/L (21.0-32.0)
[2016-07-02 07:40] LABS: INDIRECT BILIRUBIN 1.1 MG/DL (0.0-0.8); TOTAL BILIRUBIN ADULT 1.3 MG/DL (0.2-1.0)
[2016-07-02 08:00] VITALS: BP 128/79; PULSE 66; RESP 16; TEMP 97; O2SAT 100
--- NOTE | 2016-07-02 08:34 | HHI.PR ---
Subjective Remarks The patient was having abdominal pain. She says morphine was not working but the oxycodone and heating pad were helping a lot. She still has been having vaginal bleeding. She said she would like to try to eat some bread. She will try ambulating later today. Objective Vitals Vital Signs Date Time Temp Pulse Resp B/P Pulse Ox O2 Delivery O2 Flow Rate FiO2 07/02/16 00:57 97.9 68 18 103/68 99 07/01/16 21:32 07/01/16 20:00 97.9 88 18 122/79 100 07/01/16 19:32 18 07/01/16 19:11 99 07/01/16 18:55 97.7 83 20 136/86 100 07/01/16 18:25 99.0 72 15 121/77 99 Nasal Cannula 3 07/01/16 18:10 72 15 132/82 100 Nasal Cannula 3 07/01/16 17:55 73 18 117/72 100 Nasal Cannula 4 07/01/16 17:40 64 16 124/58 97 Nasal Cannula 4 07/01/16 17:25 98.0 66 16 117/72 99 Room Air 07/01/16 15:47 97.8 69 18 124/70 100 07/01/16 15:30 97.2 64 20 112/73 100 07/01/16 12:17 18 07/01/16 11:54 96.7 82 20 100/70 98 07/01/16 10:13 98 21 I/O 07/01/16 07/01/16 07/01/16 07/02/16 07/02/16 07/02/16 07:00 15:00 23:00 07:00 15:00 23:00 Intake Total 800 ml 0 ml 1600 ml Output Total 3000 ml Balance 800 ml 0 ml 1600 ml -3000 ml Intake Oral 0 ml IV Total 800 ml 900 ml Other 700 ml Output Urine Total 3000 ml # Voids 5 2 # Bowel Movements 0 Result Diagram: 07/02/16 0635 07/02/16 0635 Imaging Last Impressions Abdomen/Pelvis CT 06/30/16 184 Signed Impressions: Service Date/Time: June 19:42 - CONCLUSION: 1. Nonspecific mild hepatomegaly. 2. Pericholecystic fluid without perceptible significant wall thickening. Potentially some sludge or small stones but no evidence of biliary obstruction. 3. 32 mm benign-appearing right adnexal cyst. Wojciech Linares MD Pelvis Ultrasound 06/30/16 0000 Signed Impressions: Service Date/Time: June 21:54 - CONCLUSION: Benign- appearing cyst of the right ovary. If felt clinically indicated, followup pelvic ultrasound in 8-12 weeks suggested to confirm resolution. Otherwise normal study. No torsion. No free fluid. Wojciech Linares MD Gall Bladder Ultrasound 06/30/16 0000 Signed Impressions: Service Date/Time: June 21:45 - CONCLUSION: Small pericholecystic fluid, nonspecific but without wall thickening or sonographic Parada's sign. No stone or ductal dilatation demonstrated. Mild nonspecific hepatomegaly. Wojciech Linares MD Objective Remarks GENERAL: This is a well-nourished, well-developed patient, in no apparent distress. SKIN: No rashes, ecchymoses or lesions. Cool and dry. HEAD: Atraumatic. Normocephalic. No temporal or scalp tenderness. EYES: Pupils equal round and reactive. Extraocular motions intact. No scleral icterus. No injection or drainage. ENT: Nose without bleeding, purulent drainage or septal hematoma. Throat without erythema, tonsillar hypertrophy or exudate. Uvula midline. Airway patent. NECK: Trachea midline. No JVD or lymphadenopathy. Supple, nontender, no meningeal signs. CARDIOVASCULAR: Regular rate and rhythm without murmurs, gallops, or rubs. RESPIRATORY: Clear to auscultation. Breath sounds equal bilaterally. No wheezes , rales, or rhonchi. GASTROINTESTINAL: Abdomen soft, tender below the umbilicus and in the RLQ, nondistended. Bandages in place. No hepato-splenomegaly, or palpable masses. No guarding. MUSCULOSKELETAL: Extremities without clubbing, cyanosis, or edema. No joint tenderness, effusion, or edema noted. NEUROLOGICAL: Awake and alert. Cranial nerves II through XII intact. Motor and sensory grossly within normal limits. Five out of 5 muscle strength in all muscle groups. Normal speech. PSYCH: Mood and affect appropriate. Procedures Cholecystectomy 07/01/16 Medications and IVs Current Medications Medications (Trade) Dose Ordered Sig/Vicenta Route Start Time Stop Time Status Last Admin (NS Flush) 2 ml UNSCH PRN IV FLUSH 06/30/16 23:15 (NS Flush) 2 ml BID IV FLUSH 07/01/16 09:00 07/01/16 22:05 (Zofran Inj) 4 mg Q6H PRN IVP 06/30/16 23:15 07/01/16 19:26 (Narcan Inj) 0.4 mg UNSCH PRN IV 06/30/16 23:15 Metoclopramide HCl 10 mg 10 mg Q8H PRN IV PUSH 06/30/16 23:15 (D5W-1/ NS 1000 ml Inj) 1,000 ml @ 100 mls/hr Q10H IV 07/01/16 10:00 07/02/16 05:21 (Roxicodone) 5 mg Q4H PRN PO 07/01/16 10:00 07/01/16 11:17 (Roxicodone) 10 mg Q4H PRN PO 07/01/16 10:00 07/02/16 07:17 (Morphine Inj) 2 mg Q4HR PRN IV PUSH 07/01/16 10:00 07/02/16 07:18 (Protonix Inj) 40 mg DAILY@, IV PUSH 07/01/16 10:15 07/01/16 22:03 A/P Assessment and Plan Acute cholecystitis The patient has right lower quadrant pain as well as significant nausea and vomiting. Imaging studies including ultrasound and CT scan demonstrated pericholecystic fluid, hepatomegaly and a right ovarian cyst. Total bilirubin elevated at 1.1. General surgery consult appreciated. S/p cholecystectomy 07/01. - diet per surgery. - Pain control and antiemetics as needed. - trend LFTs. - PPI. - encourage ambulation. Vaginal bleeding The patient says that during the severe episode of nausea and vomiting she had 2 hours of vaginal bleeding. She says she does not tend to have any vaginal bleeding with her IUD. She did report further bleeding overnight. H/H stable. - OBGYN consult requested. - follow CBC. PPx: SCDs Discharge Planning Awaiting GROUP SEGMENT CONSULTANT Nir Calderón DO July 02, 2016 08:34
[2016-07-02] MEDS: SODIUM CHLORIDE 0.9% FLUSH 10 ML FLUSH IV FLUSH SCH ×2 (09:00→21:00)
[2016-07-02] MEDS ORDERED: POTASSIUM CHLORIDE 25 MEQ EFFERVESCENT TAB PO ONE (09:00)
[2016-07-02] MEDS: PANTOPRAZOLE SODIUM 40 MG VIAL IV PUSH SCH ×2 (09:24→21:42)
[2016-07-02 12:00] VITALS: BP 114/74; PULSE 76; RESP 18; TEMP 96.7; O2SAT 97
[2016-07-02] MEDS ORDERED: BENZOCAINE 6 MG/MENTHOL 10 MG LOZENGE BUCCAL PRN (12:00)
[2016-07-02] MEDS ORDERED: MENTHOL LOZENGE BUCCAL PRN (13:15)
[2016-07-02 15:38] VITALS: O2SAT 97
[2016-07-02 16:00] VITALS: BP 115/75; PULSE 71; RESP 18; TEMP 96.6; O2SAT 100
[2016-07-02] MEDS: PHENOL 1.4% SOLN 180 ML BTL OROPHARYNG PRN ×2 (19:26→23:19)
[2016-07-02] MEDS: BENZOCAINE 6 MG/MENTHOL 10 MG LOZENGE BUCCAL PRN ×2 (21:27→23:19)
[2016-07-02 21:32] VITALS: BP 127/87; PULSE 76; RESP 18; TEMP 97.7; O2SAT 100
[2016-07-02] MEDS ORDERED: BISACODYL 10 MG SUPP RECTAL ONE (23:00)
[2016-07-02] MEDS: SIMETHICONE 125 MG CHEWABLE TAB PO PRN (23:19)
[2016-07-03] VITALS: BP 119/84; PULSE 65; RESP 16; TEMP 97.2; O2SAT 100
[2016-07-03] MEDS: MORPHINE SULFATE 4 MG/ML INJ IV PUSH PRN (00:44)
[2016-07-03 04:00] VITALS: BP 115/86; PULSE 71; RESP 18; TEMP 97.9; O2SAT 99
[2016-07-03 07:29] LABS: HEMATOCRIT 38.2 % (35.0-46.0); MEAN CELL VOLUME 90.9 FL (80.0-100.0); MEAN CORPUSCULAR HEMOGLOBIN 29.5 PG (27.0-34.0); MEAN CORPUSCULAR HGB CONC 32.5 % (32.0-36.0); PLATELET COUNT 236 TH/MM3 (150-450); RED CELL DISTRIBUTION WIDTH 11.9 % (11.6-17.2); REVIEW FLAG FINAL; WHITE BLOOD COUNT 7.2 TH/MM3 (4.0-11.0)
[2016-07-03 07:40] LABS: CHLORIDE 109 MEQ/L (98-107); POTASSIUM 3.7 MEQ/L (3.5-5.1); SODIUM (NA) 144 MEQ/L (136-145)
[2016-07-03 07:51] LABS: ANION GAP 6 MEQ/L (5-15); BICARBONATE 29.4 MEQ/L (21.0-32.0); BLOOD UREA NITROGEN 5 MG/DL (7-18)
[2016-07-03 07:53] LABS: ALT (GPT) 16 U/L (10-53); AST (GOT) 15 U/L (15-37)
[2016-07-03 07:54] LABS: GLOMERULAR FILTRATION RATE 93 ML/MIN (>89); TOTAL BILIRUBIN ADULT 0.9 MG/DL (0.2-1.0)
[2016-07-03 07:55] LABS: ALKALINE PHOSPHATASE 43 U/L (45-117)
[2016-07-03 08:00] VITALS: BP 138/85; PULSE 72; RESP 18; TEMP 97.8; O2SAT 100
[2016-07-03] MEDS: ONDANSETRON HCL 4 MG/2 ML VIAL IVP PRN (08:20)
[2016-07-03] MEDS: SODIUM CHLORIDE 0.9% FLUSH 10 ML FLUSH IV FLUSH SCH (08:27)
--- NOTE | 2016-07-03 09:38 | HHI.PR ---
Subjective Remarks The patient was complaining of a sore throat. She said she was having 4 out of 10 throat pain when swallowing. She has been using salt water gargles which have been helping. She has not had a bowel movement for a while and she said the suppository didn't work. She has been passing minimal gas. She has no appetite at this time. Objective Vitals Vital Signs Date Time Temp Pulse Resp B/P Pulse Ox O2 Delivery O2 Flow Rate FiO2 07/03/16 08:00 97.8 72 18 138/85 100 07/03/16 04:00 97.9 71 18 115/86 99 07/03/16 00:00 97.2 65 16 119/84 100 07/02/16 21:32 97.7 76 18 127/87 100 07/02/16 16:00 96.6 71 18 115/75 100 07/02/16 15:38 97 21 07/02/16 12:00 96.7 76 18 114/74 97 I/O 07/02/16 07/02/16 07/02/16 07/03/16 07/03/16 07/03/16 07:00 15:00 23:00 07:00 15:00 23:00 Intake Total 690 ml 900 ml Output Total 3000 ml Balance -3000 ml 690 ml 900 ml Intake Oral 690 ml IV Total 900 ml Output Urine Total 3000 ml # Voids 2 4 4 # Bowel Movements 0 0 0 Result Diagram: 07/03/16 0703 07/03/16 0703 Imaging Last Impressions Abdomen/Pelvis CT 06/30/16 1842 Signed Impressions: Service Date/Time: June 19:42 - CONCLUSION: 1. Nonspecific mild hepatomegaly. 2. Pericholecystic fluid without perceptible significant wall thickening. Potentially some sludge or small stones but no evidence of biliary obstruction. 3. 32 mm benign-appearing right adnexal cyst. Wojciech Linares MD Pelvis Ultrasound 06/30/16 0000 Signed Impressions: Service Date/Time: June 21:54 - CONCLUSION: Benign- appearing cyst of the right ovary. If felt clinically indicated, followup pelvic ultrasound in 8-12 weeks suggested to confirm resolution. Otherwise normal study. No torsion. No free fluid. Wojciech Linares MD Gall Bladder Ultrasound 06/30/16 0000 Signed Impressions: Service Date/Time: June 21:45 - CONCLUSION: Small pericholecystic fluid, nonspecific but without wall thickening or sonographic Parada's sign. No stone or ductal dilatation demonstrated. Mild nonspecific hepatomegaly. Wojciech Linares MD Objective Remarks GENERAL: This is a well-nourished, well-developed patient, in no apparent distress. SKIN: No rashes, ecchymoses or lesions. Cool and dry. HEAD: Atraumatic. Normocephalic. No temporal or scalp tenderness. EYES: Pupils equal round and reactive. Extraocular motions intact. No scleral icterus. No injection or drainage. ENT: Nose without bleeding, purulent drainage or septal hematoma. Exudate noted on uvula, erythematous pharynx. Airway patent. NECK: Trachea midline. No JVD or lymphadenopathy. Supple, nontender, no meningeal signs. CARDIOVASCULAR: Regular rate and rhythm without murmurs, gallops, or rubs. RESPIRATORY: Clear to auscultation. Breath sounds equal bilaterally. No wheezes , rales, or rhonchi. GASTROINTESTINAL: Abdomen soft, mild generalized tenderness, nondistended. Bandages in place. No hepato-splenomegaly, or palpable masses. No guarding. MUSCULOSKELETAL: Extremities without clubbing, cyanosis, or edema. No joint tenderness, effusion, or edema noted. NEUROLOGICAL: Awake and alert. Cranial nerves II through XII intact. Motor and sensory grossly within normal limits. Five out of 5 muscle strength in all muscle groups. Normal speech. PSYCH: Slightly flattened affect. Procedures Cholecystectomy 07/01/16 Medications and IVs Current Medications Medications (Trade) Dose Ordered Sig/Vicenta Route Start Time Stop Time Status Last Admin (NS Flush) 2 ml UNSCH PRN IV FLUSH 06/30/16 23:15 07/02/16 23:08 (NS Flush) 2 ml BID IV FLUSH 07/01/16 09:00 07/01/16 22:05 (Zofran Inj) 4 mg Q6H PRN IVP 06/30/16 23:15 07/03/16 08:20 (Narcan Inj) 0.4 mg UNSCH PRN IV 06/30/16 23:15 Metoclopramide HCl 10 mg 10 mg Q8H PRN IV PUSH 06/30/16 23:15 (D5W-1/2 NS 1000 ml Inj) 1,000 ml @ 100 mls/hr Q10H IV 07/01/16 10:00 07/02/16 15:31 (Roxicodone) 5 mg Q4H PRN PO 07/01/16 10:00 07/01/16 11:17 (Roxicodone) 10 mg Q4H PRN PO 07/01/16 10:00 07/03/16 08:27 (Protonix Inj) 40 mg DAILY@10,22 IV PUSH 07/01/16 10:15 07/02/16 21:42 (Morphine Inj) 4 mg Q4HR PRN IV PUSH 07/02/16 09:00 07/03/16 00:44 (Chloraseptic Jake) 1 lozenge UNSCH PRN BUCCAL 07/02/16 14:00 07/02/16 23:19 ([place] Jake) 1 lozenge UNSCH PRN BUCCAL 07/02/16 13:15 07/02/16 14:49 (Chloraseptic [place]) 2 spray Q2H PRN OROPHARYNG 07/02/16 15:00 07/02/16 23:19 (Phazyme Chew) 125 mg Q8HR PRN PO 07/02/16 23:00 07/02/16 23:19 (Magic Mouthwash Adult Liq) 10 ml QID SWISH-SWAL 07/03/16 13:00 UNV (Tatiana-Colace) 1 tab BID PO 07/03/16 09:30 UNV (Miralax) 17 gm DAILY PO 07/03/16 09:30 UNV A/P Assessment and Plan Acute cholecystitis The patient has right lower quadrant pain as well as significant nausea and vomiting. Imaging studies including ultrasound and CT scan demonstrated pericholecystic fluid, hepatomegaly and a right ovarian cyst. Total bilirubin elevated at 1.1. General surgery consult appreciated. S/p cholecystectomy 07/01. LFTs now normal. - Advance to regular diet. - Pain control and antiemetics as needed. - PPI. - encourage ambulation. Throat pain Exam with exudate on uvula. - Strep screen and mono screen pending. - Magic mouthwash. - Pain control as needed. Vaginal bleeding The patient says that during the severe episode of nausea and vomiting she had 2 hours of vaginal bleeding. She says she does not tend to have any vaginal bleeding with her IUD. She did report further bleeding overnight. H/H stable. - OBGYN contacted and they recommended follow-up as an outpatient. Will ask for inpatient consult if continues. - follow CBC. PPx: SCDs Discharge Planning Awaiting clinical improvement Nir Solomon DO July 03, 2016 09:38
[2016-07-03] MEDS ORDERED: DOCUSATE SODIUM 50 MG/SENNA 8.6 MG TAB PO SCH (10:00)
[2016-07-03] MEDS ORDERED: POLYETHYLENE GLYCOL 17 GM PKG PO SCH (10:00)
[2016-07-03] MEDS: PANTOPRAZOLE SODIUM 40 MG VIAL IV PUSH SCH (10:55)
[2016-07-03 12:00] VITALS: BP 115/68; PULSE 81; RESP 19; TEMP 97.8; O2SAT 99
[2016-07-03] MEDS: SIMETHICONE 125 MG CHEWABLE TAB PO PRN (12:00)
[2016-07-03] MEDS: DEXT 5%-NACL 0.45% 1000 ML INJ 1,000 ML IV SCH (12:02)
[2016-07-03] MEDS ORDERED: NYSTAT/DIPHENHY/LIDO MOUTHWASH (Adult) 120ML SWISH-SWAL SCH (13:00)
[2016-07-03] MEDS ORDERED: OXYC-392 PO (14:14)
[2016-07-03] MEDS ORDERED: MAGICADU2 SWISH-SWAL (14:14)
--- NOTE | 2016-07-03 14:15 | HHI.DCPOC ---
Discharge Care Plan Diagnosis: (1) Constipation (2) Cholecystitis (3) Sore throat Goals to Promote Your Health * To prevent worsening of your condition and complications * To maintain your health at the optimal level Directions to Meet Your Goals Take your medications as prescribed Follow your dietary instruction Follow activity as directed Keep your appointments as scheduled Take your immunizations and boosters as scheduled If your symptoms worsen call your PCP, if no PCP go to Urgent Care Center or Emergency Room Smoking is Dangerous to Your Health. Avoid second hand smoke Call the 24-hour hour crisis hotline for domestic abuse at Nir Solomon DO July 03, 2016 14:15
[2016-07-03] MEDS ORDERED: PERC7.5T13 PO (14:16)
--- NOTE | 2016-07-03 14:27 | HHI.DS ---
Discharge Summary Admission Date June 30, 2016 at 23:10 Discharge Date: July 03, 2016 Admitting Diagnosis Intractable nausea/vomiting; possible cholecystitis (1) Constipation ICD Code: K59.00 (2) Sore throat ICD Code: J02.9 (3) Cholecystitis ICD Code: K81.9 Procedures Cholecystectomy 07/01/16 Brief History - From Admission The patient is a 25-year-old female who is presenting to the hospital with nausea and vomiting and abdominal pain. The patient says that for the past month she has been experiencing on and off pain on the right side of her abdomen. She says sometimes when she stands up or moves around she'll see a little bulge in the right lower quadrant of her abdomen. She describes the pain as cramping over the past month or so. Over the past week she has been having more severe pain as well as bouts of nausea and vomiting. Yesterday at work she got dizzy and then all of a sudden had nonstop vomiting. She denied any blood in the vomitus. She also mentioned that during her vomiting episode she noticed that she passed a blood clot vaginally. After that blood clot past she had continuous bleeding for 2 hours. She says she does not tend to have any vaginal bleeding since she had the Mirena IUD placed a few years ago. She also endorsed headaches associated with the nausea and vomiting episodes. She endorses chills and hot flashes on a daily basis. She says sometimes she gets bloodshot in her face. She also endorses diarrhea over the past week. She denies any blood in the stool and says that it is a light brown in color. CBC/BMP: 07/03/16 0703 07/03/16 0703 Significant Findings Laboratory Tests Test 06/30/16 06/30/16 07/01/16 07/02/16 18:45 18:50 05:47 06:35 Urine Ketones TRACE mg/dL (NEG) Urine Occult Blood LARGE (NEG) Urine Mucus MOD /lpf (OCC) White Blood Count 11.7 TH/MM3 (4.0-11.0) Neutrophils (%) (Auto) 80.4 % 82.8 % (16.0-70.0) (16.0-70.0) Neutrophils # (Auto) 9.5 TH/MM3 8.0 TH/MM3 (1.8-7.7) (1.8-7.7) Random Glucose 109 MG/DL 110 MG/DL (74-106) (74-106) Chloride Level 109 MEQ/L (98-107) Calcium Level 8.1 MG/DL 8.2 MG/DL (8.5-10.1) (8.5-10.1) Total Bilirubin 1.1 MG/DL 1.3 MG/DL (0.2-1.0) (0.2-1.0) Aspartate Amino Transf 14 U/L (15-37) (AST/SGOT) Total Protein 6.1 GM/DL 6.2 GM/DL (6.4-8.2) (6.4-8.2) Albumin 3.1 GM/DL 3.2 GM/DL (3.4-5.0) (3.4-5.0) Lipase 69 U/L (73-393) Blood Urea Nitrogen 5 MG/DL (7-18) Indirect Bilirubin 1.1 MG/DL (0.0-0.8) Test 07/03/16 07:03 Mean Platelet Volume 6.8 FL (7.0-11.0) Chloride Level 109 MEQ/L (98-107) Blood Urea Nitrogen 5 MG/DL (7-18) Calcium Level 7.9 MG/DL (8.5-10.1) Alkaline Phosphatase 43 U/L (45-117) Total Protein 5.5 GM/DL (6.4-8.2) Albumin 2.9 GM/DL (3.4-5.0) Imaging Last Impressions Abdomen/Pelvis CT 06/30/16 1842 Signed Impressions: Service Date/Time: June 19:42 - CONCLUSION: 1. Nonspecific mild hepatomegaly. 2. Pericholecystic fluid without perceptible significant wall thickening. Potentially some sludge or small stones but no evidence of biliary obstruction. 3. 32 mm benign-appearing right adnexal cyst. Wojciech Linares MD Pelvis Ultrasound 06/30/16 0000 Signed Impressions: Service Date/Time: June 21:54 - CONCLUSION: Benign- appearing cyst of the right ovary. If felt clinically indicated, followup pelvic ultrasound in 8-12 weeks suggested to confirm resolution. Otherwise normal study. No torsion. No free fluid. Wojciech Linares MD Gall Bladder Ultrasound 06/30/16 0000 Signed Impressions: Service Date/Time: June 21:45 - CONCLUSION: Small pericholecystic fluid, nonspecific but without wall thickening or sonographic Parada's sign. No stone or ductal dilatation demonstrated. Mild nonspecific hepatomegaly. Wojciech Linares MD PE at Discharge GENERAL: This is a well-nourished, well-developed patient, in no apparent distress. SKIN: No rashes, ecchymoses or lesions. Cool and dry. HEAD: Atraumatic. Normocephalic. No temporal or scalp tenderness. EYES: Pupils equal round and reactive. Extraocular motions intact. No scleral icterus. No injection or drainage. ENT: Nose without bleeding, purulent drainage or septal hematoma. Exudate noted on uvula, erythematous pharynx. Airway patent. NECK: Trachea midline. No JVD or lymphadenopathy. Supple, nontender, no meningeal signs. CARDIOVASCULAR: Regular rate and rhythm without murmurs, gallops, or rubs. RESPIRATORY: Clear to auscultation. Breath sounds equal bilaterally. No wheezes , rales, or rhonchi. GASTROINTESTINAL: Abdomen soft, mild generalized tenderness, nondistended. Bandages in place. No hepato-splenomegaly, or palpable masses. No guarding. MUSCULOSKELETAL: Extremities without clubbing, cyanosis, or edema. No joint tenderness, effusion, or edema noted. NEUROLOGICAL: Awake and alert. Cranial nerves II through XII intact. Motor and sensory grossly within normal limits. Five out of 5 muscle strength in all muscle groups. Normal speech. PSYCH: Slightly flattened affect. Hospital Course Acute cholecystitis The patient has right lower quadrant pain as well as significant nausea and vomiting. Imaging studies including ultrasound and CT scan demonstrated pericholecystic fluid, hepatomegaly and a right ovarian cyst. Total bilirubin elevated at 1.1. General surgery was consulted. S/p cholecystectomy 07/01. LFTs now normal. She was advanced to a regular diet. She received pain control and antiemetics as needed as well as a PPI. We encouraged ambulation. She was cleared for discharge by surgery, who she will follow-up with as an outpt. She was given Percocet for pain control upon discharge. Pharyngitis Exam with exudate on uvula. Strep screen negative. [place] screen pending. She received lozenges and Magic mouthwash, as well as pain control as needed. Vaginal bleeding The patient says that during the severe episode of nausea and vomiting she had 2 hours of vaginal bleeding. She says she does not tend to have any vaginal bleeding with her IUD. She did report further bleeding overnight. H/H stable. OBGYN contacted and they recommended follow-up as an outpatient. CBC remained stable. Constipation The pt was started on a bowel regimen including a suppository. She will need to continue stool softeners upon discharge. Pt Condition on Discharge: Good Discharge Disposition: Discharge Home Discharge Time: > 30 minutes Discharge Instructions DIET: Follow Instructions for: As Tolerated, No Restrictions Activities you can perform: Regular-No Restrictions Follow up Referrals: [facility] - 1 Week PCP Follow-up Surgical - 1 Week with Jamie Lee MD New Medications: Oxycodone-Acetaminophen (Percocet) 7.5-325 mg Tab 1 TAB PO Q4H PRN PAIN #0 Ref 0 TAB Azkbrnca-Htomjhhoegbiipv-Hmzcvrjvc Liq (Magic Mouthwash Adult Liq) 120 Ml Susp 10 ML SWISH-SWAL QID Sore throat #1 BOTTLE Additional Information Discharge time greater than 30 minutes Nir Solomon DO July 03, 2016 14:27
--- NOTE | 2016-07-03 15:43 | HHI.PR ---
Subjective Subjective Notes feels better Objective Vitals/I&O Vital Signs Date Time Temp Pulse Resp B/P Pulse Ox O2 Delivery O2 Flow Rate FiO2 07/03/16 12:00 97.8 81 19 115/68 99 07/02/16 15:38 21 07/01/16 18:25 Nasal Cannula 3 Labs Laboratory Tests Test 07/03/16 07/03/16 07:03 09:44 White Blood Count 7.2 Red Blood Count 4.20 Hemoglobin 12.4 Hematocrit 38.2 Mean Corpuscular Volume 90.9 Mean Corpuscular Hemoglobin 29.5 Mean Corpuscular Hemoglobin 32.5 Concent Red Cell Distribution Width 11.9 Platelet Count 236 Mean Platelet Volume 6.8 Sodium Level 144 Potassium Level 3.7 Chloride Level 109 Carbon Dioxide Level 29.4 Anion Gap 6 Blood Urea Nitrogen 5 Creatinine 0.76 Estimat Glomerular Filtration 93 Rate Random Glucose 94 Calcium Level 7.9 Magnesium Level 2.0 Total Bilirubin 0.9 Aspartate Amino Transf 15 (AST/SGOT) Alanine Aminotransferase 16 (ALT/SGPT) Alkaline Phosphatase 43 Total Protein 5.5 Albumin 2.9 Monoscreen NEG Date/Time Procedure Status Source Growth 07/03/16 11:30 Group A Streptococcus Screen ([facility]) - Final Complete Throat 07/03/16 11:30 Group A Streptococcus Screen Received Throat Pending Radiology Last 48 hours Impressions Abdomen/Pelvis CT 06/30/16 1842 Signed Impressions: Service Date/Time: June 19:42 - CONCLUSION: 1. Nonspecific mild hepatomegaly. 2. Pericholecystic fluid without perceptible significant wall thickening. Potentially some sludge or small stones but no evidence of biliary obstruction. 3. 32 mm benign-appearing right adnexal cyst. Wojciech Linares MD Pelvis Ultrasound 06/30/16 0000 Signed Impressions: Service Date/Time: June 21:54 - CONCLUSION: Benign- appearing cyst of the right ovary. If felt clinically indicated, followup pelvic ultrasound in 8-12 weeks suggested to confirm resolution. Otherwise normal study. No torsion. No free fluid. Wojciech Linares MD Gall Bladder Ultrasound 06/30/16 0000 Signed Impressions: Service Date/Time: June 21:45 - CONCLUSION: Small pericholecystic fluid, nonspecific but without wall thickening or sonographic Parada's sign. No stone or ductal dilatation demonstrated. Mild nonspecific hepatomegaly. Wojciech Linares MD Abdomen: Non-distended, Post-op tenderness A/P Assessment and Plan 25yo female s/p lap fe, stable, ok to DC home. tolerating PO, pain ok, no new c/o Yovany Wilson MD July 03, 2016 15:43
== END 2016-07-03 15:05 | disposition home or self-care (01) ==
LOC: PHED 18:15 → PHEDA 23:10 → PH3B 07-01 03:30
PROVIDERS: ADMIT Hospitalist; ATTEND Hospitalist
DX: K80.12 Calculus of gallbladder with acute and chronic cholecystitis without obstruction (principal); D72.829 Elevated white blood cell count, unspecified; N93.9 Abnormal uterine and vaginal bleeding, unspecified; K59.00 Constipation, unspecified; J02.9 Acute pharyngitis, unspecified; Z88.6 Allergy status to analgesic agent
CPT/HCPCS: 00790; 47562; 74177; 76705; 76856; 80048; 80053; 80076; 81001; 83690; 83735; 84703; 85025; 85027; 86308; 87081; 87880; 88304; 93975; 96361; 96374; 96375; 96376; 99285; C9113; G0378; J0131; J0690; J1100; J1170; J2250; J2270; J2405; J2710; J2765; J3010; J7030; J7040; Q9967

== ENCOUNTER 2016-07-10 09:17 | Emergency (ER) | payer MEDICAID ==
[~2016-07-10] VITALS: Ht 172.7 cm; Wt 55.0 kg
[~2016-07-10 09:17] MED LIST changes: +MAGICADU2 SWISH-SWAL; -NAPR500 PO; +PERC7.5T13 PO; -XANA0.5T PO; -ZOFR4TAB3 SL
[2016-07-10 09:20] VITALS: BP 130/72; PULSE 95; RESP 24; TEMP 97.5; O2SAT 100
[2016-07-10] MEDS ORDERED: HYDR-3516 PO (09:31)
[2016-07-10] MEDS ORDERED: SODIUM CHLOR 0.9% 1000 ML INJ 1,000 ML IV SCH (09:53)
[2016-07-10 09:56] VITALS: O2SAT 100
[2016-07-10] MEDS ORDERED: ONDANSETRON HCL 4 MG/2 ML VIAL IVP ONE (10:00)
[2016-07-10] MEDS ORDERED: SODIUM CHLORIDE 0.9% FLUSH 10 ML FLUSH IV FLUSH PRN (10:00)
[2016-07-10 10:21] LABS: AUTOMATED NEUTROPHIL # 5.7 TH/MM3 (1.8-7.7); BASOPHIL % 0.3 % (0.0-2.0); EOSINOPHIL # 0.2 TH/MM3 (0-0.4); EOSINOPHIL % 2.9 % (0.0-4.0); HEMATOCRIT 43.3 % (35.0-46.0); HEMO FLAGS DIFF FINAL; LYMPH % 18.5 % (9.0-44.0); LYMPHOCYTE # 1.4 TH/MM3 (1.0-4.8); MEAN CELL VOLUME 87.9 FL (80.0-100.0); MEAN CORPUSCULAR HEMOGLOBIN 30.5 PG (27.0-34.0); MEAN CORPUSCULAR HGB CONC 34.7 % (32.0-36.0); MONO % 4.7 % (0.0-8.0); NEUT % 73.6 % (16.0-70.0); PLATELET COUNT 255 TH/MM3 (150-450); RED BLOOD COUNT 4.93 MIL/MM3 (4.00-5.30); RED CELL DISTRIBUTION WIDTH 12.4 % (11.6-17.2); WHITE BLOOD COUNT 7.8 TH/MM3 (4.0-11.0)
[2016-07-10 10:31] LABS: APTT (PATIENT) 27.8 SEC (24.3-30.1); INTERNATIONAL NORMALIZED RATIO 1.1 RATIO; PROTHROMBIN TIME - PATIENT 12.6 SEC (9.8-11.6)
[2016-07-10 10:37] LABS: ANION GAP 8 MEQ/L (5-15); AST (GOT) 23 U/L (15-37); BICARBONATE 27.2 MEQ/L (21.0-32.0); BLOOD UREA NITROGEN 12 MG/DL (7-18); CHLORIDE 103 MEQ/L (98-107); GLOMERULAR FILTRATION RATE 99 ML/MIN (>89); POTASSIUM 4.1 MEQ/L (3.5-5.1); SODIUM (NA) 138 MEQ/L (136-145)
[2016-07-10 10:38] LABS: ALT (GPT) 22 U/L (10-53)
[2016-07-10 10:41] LABS: ALKALINE PHOSPHATASE 58 U/L (45-117)
[2016-07-10 10:43] LABS: BLOOD, URINE NEG (NEG); GLUCOSE,URINE NEG (NEG); KETONE, URINE NEG (NEG); NITRITE,URINE NEG (NEG); PH, URINE 5.5 (5.0-8.5); URINE COLOR YELLOW (YELLW/STRAW)
[2016-07-10 11:09] LABS: COMMENT (UR) CULT NOT INDICATED; COMMENT2 (UR) CULT NOT INDICATED; CULTURE IF INDICATED CULT NOT INDICATED; MUCUS URINE OCC /lpf (OCC); RBC, URINE 0-3 /hpf (0-3); SQUAMOUS EPITHELIAL CELL URINE 0-5 /hpf (0-5); WBC, URINE 0-2 /hpf (0-5)
[2016-07-10 12:24] VITALS: BP 106/62; PULSE 72; RESP 16; O2SAT 100
[2016-07-10] MEDS ORDERED: ACETAMINOPHEN 325 MG TAB PO ONE (12:30)
[2016-07-10] MEDS ORDERED: KETOROLAC TROMETHAMINE 30 MG/ML (IVP) VIAL IV PUSH ONE (12:45)
[2016-07-10] MEDS ORDERED: DEXAMETHASONE SOD PHOS 20 MG/5 ML VIAL IV PUSH ONE (12:45)
--- NOTE | 2016-07-10 12:54 | PD ---
HPI Chief Complaint: GI Complaint Time Seen by Provider: 10:00 Travel History International Travel<30 days: No Contact w/Intl Traveler<30days: No Traveled to known affect area: No History of Present Illness HPI Patient is a 25-year-old female who presents to emergency room complaints of nausea vomiting for the past 4 days. That she had a cholecystectomy by Dr. Lee on July 01, 2016. Reports that she follow-up with Dr. Lee on Monday and reports that everything looked good. She is having no fevers or chills, reports that her incision sites are tender, reports that pain is at baseline. Patient reports that she has been unable to eat or drink anything all day today , reports that she has been tolerating fluids prior to this and has been doing well. PFSH Past Medical History Medical History: Denies Significant Hx Blood Disorders: No Cancer: No Cardiovascular Problems: No Diminished Hearing: No Endocrine: No Genitourinary: No Immune Disorder: No Musculoskeletal: Yes (KNEE ISSUES) Neurologic: No Psychiatric: No Reproductive: No Respiratory: No Tetanus Vaccination: < 5 Years Influenza Vaccination: Yes ?: Not LMP: 2014 : 2 Para: 2 Past Surgical History Cholecystectomy: Yes Social History Alcohol Use: No Tobacco Use: No Substance Use: No Allergies-Medications (Allergen,Severity, Reaction): Coded Allergies: Percocet (Verified Allergy, Severe, SEIZURE, 07/10/16) Reported Meds & Prescriptions Reported Meds & Active Scripts Active Reported Hydrocodone-Acetaminophen 5-325 mg Tab 1 Tab PO Q6H PRN Review of Systems General / Constitutional: No: Fever Eyes: No: Visual changes HENT: No: Headaches Cardiovascular: No: Chest Pain or Discomfort Respiratory: No: Shortness of Breath Gastrointestinal: Positive: Nausea, Vomiting, No: Abdominal Pain Genitourinary: No: Dysuria Musculoskeletal: No: Pain Skin: No Rash Neurologic: No: Weakness Psychiatric: No: Depression Endocrine: No: Polydipsia Hematologic/Lymphatic: No: Easy Bruising Physical Exam Narrative GENERAL: mod distress SKIN: Focused skin assessment warm/dry. HEAD: Atraumatic. Normocephalic. EYES: Pupils equal and round. No scleral icterus. No injection or drainage. ENT: No nasal bleeding or discharge. Mucous membranes pink and moist. NECK: Trachea midline. No JVD. CARDIOVASCULAR: Regular rate and rhythm. No murmur appreciated. RESPIRATORY: No accessory muscle use. Clear to auscultation. Breath sounds equal bilaterally. GASTROINTESTINAL: Abdomen soft, non-tender, nondistended, incision site clean/ dry/ intact with no drainage or signs of infection MUSCULOSKELETAL: No obvious deformities. No clubbing. No cyanosis. No edema. NEUROLOGICAL: Awake and alert. No obvious cranial nerve deficits. Motor grossly within normal limits. Normal speech. PSYCHIATRIC: Appropriate mood and affect; insight and judgment normal. Data Data Last Documented VS Vital Signs Date Time Temp Pulse Resp B/P Pulse Ox O2 Delivery O2 Flow Rate FiO2 07/10/16 12:24 72 16 106/62 100 Room Air 07/10/16 09:20 97.5 Orders Complete Blood Count With Diff (07/10/16 09:53) Comprehensive Metabolic Panel (07/10/16 09:53) Lipase (07/10/16 09:53) Prothrombin Time / Inr (Pt) (07/10/16 09:53) Act Partial Throm Time (Ptt) (07/10/16 09:53) Urinalysis - C+S If Indicated (07/10/16 09:53) Iv Access Insert/Monitor (07/10/16 09:53) Oximetry (07/10/16 09:53) NPO (07/10/16 09:53) Ondansetron Inj (Zofran Inj) (07/10/16 10:00) Sodium Chlor 0.9% 1000 Ml Inj (Ns 1000 M (07/10/16 09:53) Sodium Chloride 0.9% Flush (Ns Flush) (07/10/16 10:00) Ed Urine Pregnancytest Poc (07/10/16 09:53) Acetaminophen (Tylenol) (07/10/16 12:30) Ketorolac Inj (Toradol Inj) (07/10/16 12:45) Dexamethasone Inj (Decadron Inj) (07/10/16 12:45) Labs Laboratory Tests Test 07/10/16 10:00 White Blood Count 7.8 TH/MM3 Red Blood Count 4.93 MIL/MM3 Hemoglobin 15.0 GM/DL Hematocrit 43.3 % Mean Corpuscular Volume 87.9 FL Mean Corpuscular Hemoglobin 30.5 PG Mean Corpuscular Hemoglobin 34.7 % Concent Red Cell Distribution Width 12.4 % Platelet Count 255 TH/MM3 Mean Platelet Volume 7.7 FL Neutrophils (%) (Auto) 73.6 % Lymphocytes (%) (Auto) 18.5 % Monocytes (%) (Auto) 4.7 % Eosinophils (%) (Auto) 2.9 % Basophils (%) (Auto) 0.3 % Neutrophils # (Auto) 5.7 TH/MM3 Lymphocytes # (Auto) 1.4 TH/MM3 Monocytes # (Auto) 0.4 TH/MM3 Eosinophils # (Auto) 0.2 TH/MM3 Basophils # (Auto) 0.0 TH/MM3 CBC Comment DIFF FINAL Differential Comment Prothrombin Time 12.6 SEC Prothromb Time International 1.1 RATIO Ratio Activated Partial 27.8 SEC Thromboplast Time Urine Color YELLOW Urine Turbidity CLEAR Urine pH 5.5 Urine Specific [place] 1.014 Urine Protein NEG mg/dL Urine Glucose (UA) NEG mg/dL Urine Ketones NEG mg/dL Urine Occult Blood NEG Urine Nitrite NEG Urine Bilirubin NEG Urine Urobilinogen LESS THAN 2.0 MG/DL Urine Leukocyte Esterase NEG Urine RBC 0-3 /hpf Urine WBC 0-2 /hpf Urine Squamous Epithelial 0-5 /hpf Cells Urine Mucus OCC /lpf Microscopic Urinalysis Comment CULT NOT INDICATED Sodium Level 138 MEQ/L Potassium Level 4.1 MEQ/L Chloride Level 103 MEQ/L Carbon Dioxide Level 27.2 MEQ/L Anion Gap 8 MEQ/L Blood Urea Nitrogen 12 MG/DL Creatinine 0.72 MG/DL Estimat Glomerular Filtration 99 ML/MIN Rate Random Glucose 97 MG/DL Calcium Level 9.1 MG/DL Total Bilirubin 1.0 MG/DL Aspartate Amino Transf 23 U/L (AST/SGOT) Alanine Aminotransferase 22 U/L (ALT/SGPT) Alkaline Phosphatase 58 U/L Total Protein 7.8 GM/DL Albumin 4.2 GM/DL Lipase 188 U/L MDM Medical Decision Making Medical Screen Exam Complete: Yes Emergency Medical Condition: Yes Interpretation(s) Vital Signs Date Time Temp Pulse Resp B/P Pulse Ox O2 Delivery O2 Flow Rate FiO2 07/10/16 12:24 72 16 106/62 100 Room Air 07/10/16 09:56 100 Room Air 07/10/16 09:20 97.5 95 24 130/72 100 Room Air Laboratory Tests Test 07/10/16 10:00 White Blood Count 7.8 TH/MM3 (4.0-11.0) Red Blood Count 4.93 MIL/MM3 (4.00-5.30) Hemoglobin 15.0 GM/DL (11.6-15.3) Hematocrit 43.3 % (35.0-46.0) Mean Corpuscular Volume 87.9 FL (80.0-100.0) Mean Corpuscular Hemoglobin 30.5 PG (27.0-34.0) Mean Corpuscular Hemoglobin 34.7 % Concent (32.0-36.0) Red Cell Distribution Width 12.4 % (11.6-17.2) Platelet Count 255 TH/MM3 (150-450) Mean Platelet Volume 7.7 FL (7.0-11.0) Neutrophils (%) (Auto) 73.6 % (16.0-70.0) Lymphocytes (%) (Auto) 18.5 % (9.0-44.0) Monocytes (%) (Auto) 4.7 % (0.0-8.0) Eosinophils (%) (Auto) 2.9 % (0.0-4.0) Basophils (%) (Auto) 0.3 % (0.0-2.0) Neutrophils # (Auto) 5.7 TH/MM3 (1.8-7.7) Lymphocytes # (Auto) 1.4 TH/MM3 (1.0-4.8) Monocytes # (Auto) 0.4 TH/MM3 (0-0.9) Eosinophils # (Auto) 0.2 TH/MM3 (0-0.4) Basophils # (Auto) 0.0 TH/MM3 (0-0.2) CBC Comment DIFF FINAL Differential Comment Prothrombin Time 12.6 SEC (9.8-11.6) Prothromb Time International 1.1 RATIO Ratio Activated Partial 27.8 SEC Thromboplast Time (24.3-30.1) Urine Color YELLOW (YELLW/STRAW) Urine Turbidity CLEAR (CLEAR) Urine pH 5.5 (5.0-8.5) Urine Specific [place] 1.014 (1.002-1.035) Urine Protein NEG mg/dL (NEG-TRACE) Urine Glucose (UA) NEG mg/dL (NEG) Urine Ketones NEG mg/dL (NEG) Urine Occult Blood NEG (NEG) Urine Nitrite NEG (NEG) Urine Bilirubin NEG (NEG) Urine Urobilinogen LESS THAN 2.0 MG/DL (LESS THAN 2.0) Urine Leukocyte Esterase NEG (NEG) Urine RBC 0-3 /hpf (0-3) Urine WBC 0-2 /hpf (0-5) Urine Squamous Epithelial 0-5 /hpf (0-5) Cells Urine Mucus OCC /lpf (OCC) Microscopic Urinalysis Comment CULT NOT INDICATED Sodium Level 138 MEQ/L (136-145) Potassium Level 4.1 MEQ/L (3.5-5.1) Chloride Level 103 MEQ/L (98-107) Carbon Dioxide Level 27.2 MEQ/L (21.0-32.0) Anion Gap 8 MEQ/L (5-15) Blood Urea Nitrogen 12 MG/DL (7-18) Creatinine 0.72 MG/DL (0.50-1.00) Estimat Glomerular Filtration 99 ML/MIN (>89) Rate Random Glucose 97 MG/DL (74-106) Calcium Level 9.1 MG/DL (8.5-10.1) Total Bilirubin 1.0 MG/DL (0.2-1.0) Aspartate Amino Transf 23 U/L (15-37) (AST/SGOT) Alanine Aminotransferase 22 U/L (10-53) (ALT/SGPT) Alkaline Phosphatase 58 U/L (45-117) Total Protein 7.8 GM/DL (6.4-8.2) Albumin 4.2 GM/DL (3.4-5.0) Lipase 188 U/L (73-393) Differential Diagnosis gastritis, gastroenteritis Narrative Course Patient is a 25-year-old female who is status post cholecystectomy on July 01, 2016, she is feeling nauseous and vomiting for the past few days, reports the symptoms are worse today. No abdominal pain today, does have postop pain which is at baseline for her. CBC & BMP Diagram 07/10/16 10:00 All labs and studies reviewed with patient in detail. Abdomen is soft, nontender, nondistended, no peritoneal signs. She is feeling much better at this time, reports resolution of nausea. Signs and symptoms of when to return to emergency room with patient detail. Patient will return to emergency as needed and will follow up with her surgeon. During the course of her visit, patient did develop a typical migraine; migraine cocktail given and patient is feeling much better at this time. Diagnosis Primary Impression: Nausea & vomiting Qualified Code: R11.2 - Non-intractable vomiting with nausea, unspecified vomiting type Patient Instructions: General Instructions Additional Instructions: Please follow-up with your surgeon as scheduled Please stop with your primary care doctor in 2-3 days Return to the emergency room as needed Med/Other Pt SpecificInfo: Prescription(s) given Scripts Ondansetron Odt (Zofran Odt)4 Mg Tab4 Mg SL Q6HR PRN (Nausea/Vomiting) #30 TAB Ref 0 Prov:Michelle Casanova DO 07/10/16 Disposition: 01 DISCHARGE HOME Condition: Stable Michelle Casanova DO Jul 10, 2016 12:54
[2016-07-10] MEDS ORDERED: ZOFR4TAB3 SL (13:10)
[2016-07-10 13:36] VITALS: BP 112/59; PULSE 87; RESP 15; O2SAT 98
[2016-07-10 13:54] VITALS: RESP 16
== END 2016-07-10 13:30 | disposition home or self-care (01) ==
LOC: NEPC 09:17
DX: R11.2 Nausea with vomiting, unspecified (principal); Z90.49 Acquired absence of other specified parts of digestive tract
CPT/HCPCS: 80053; 81001; 83690; 84703; 85025; 85610; 85730; 96361; 96374; 96375; 99284; J1100; J1885; J2405; J7030

== ENCOUNTER 2016-12-19 08:53 | Emergency (ER) | payer MEDICAID ==
[~2016-12-19] VITALS: Ht 162.6 cm; Wt 60.0 kg
[~2016-12-19 08:53] MED LIST changes: +HYDR-3516 PO; -MAGICADU2 SWISH-SWAL; -PERC7.5T13 PO; +ZOFR4TAB3 SL
[2016-12-19 08:54] VITALS: BP 136/84; PULSE 78; RESP 15; TEMP 97.7; O2SAT 97
[2016-12-19] MEDS ORDERED: SODIUM CHLOR 0.9% 1000 ML INJ 1,000 ML IV SCH (09:01)
--- NOTE | 2016-12-19 09:11 | PD ---
HPI Chief Complaint: GI Complaint Time Seen by Provider: 09:00 Travel History International Travel<30 days: No Contact w/Intl Traveler<30days: No Traveled to known affect area: No History of Present Illness HPI onset last night of n/v/d/ followed by crampy abd pain, diffuse, /, nonradiating. patient states that she ate rarely cooked meat about a day ago. last meal she skipped and only had drink (soda). all:percocet hives pmhx: denies pshx: PFSH Past Medical History Blood Disorders: No Cancer: No Cardiovascular Problems: No Diminished Hearing: No Endocrine: No Genitourinary: No Immune Disorder: No Musculoskeletal: Yes (KNEE ISSUES) Neurologic: No Psychiatric: No Reproductive: No Respiratory: No ?: Not : 2 Para: 2 Past Surgical History Cholecystectomy: Yes Social History Alcohol Use: No Tobacco Use: No Substance Use: No Allergies-Medications (Allergen,Severity, Reaction): Coded Allergies: acetaminophen (Unverified Allergy, Severe, SEIZURE, 09/21/16) oxycodone (Unverified Allergy, Severe, SEIZURE, 09/21/16) Reported Meds & Prescriptions Reported Meds & Active Scripts Active Ultram (Tramadol HCl) 50 Mg Tab 50 Mg PO Q6H PRN Cipro (Ciprofloxacin HCl) 500 Mg Tab 500 Mg PO BID 3 Days Flagyl (Metronidazole) 500 Mg Tab 500 Mg PO TID Zofran Odt (Ondansetron Odt) 4 Mg Tab 4 Mg SL Q6HR PRN Zofran Odt (Ondansetron Odt) 4 Mg Tab 4 Mg SL Q6HR PRN Reported Hydrocodone-Acetaminophen 5-325 mg Tab 1 Tab PO Q6H PRN Review of Systems Except as stated in HPI: all other systems reviewed are Neg General / Constitutional: No: Fever Eyes: No: Visual changes HENT: No: Headaches Cardiovascular: No: Chest Pain or Discomfort Respiratory: No: Shortness of Breath Gastrointestinal: Positive: Nausea, Vomiting, Diarrhea, Abdominal Pain Genitourinary: No: Dysuria Musculoskeletal: No: Pain Skin: No Rash Neurologic: No: Weakness Psychiatric: No: Depression Endocrine: No: Polydipsia Hematologic/Lymphatic: No: Easy Bruising Physical Exam Narrative GENERAL: SKIN: Warm and dry. HEAD: Atraumatic. Normocephalic. EYES: Pupils equal and round. No scleral icterus. No injection or drainage. ENT: No nasal bleeding or discharge. Mucous membranes pink and moist. NECK: Trachea midline. No JVD. CARDIOVASCULAR: Regular rate and rhythm. RESPIRATORY: No accessory muscle use. Clear to auscultation. Breath sounds equal bilaterally. GASTROINTESTINAL: Abdomen soft, non-tender, nondistended. MUSCULOSKELETAL: Extremities without clubbing, cyanosis, or edema. No obvious deformities. NEUROLOGICAL: Awake and alert. No obvious cranial nerve deficits. Motor grossly within normal limits. Five out of 5 muscle strength in the arms and legs. Normal speech. PSYCHIATRIC: Appropriate mood and affect; insight and judgment normal. Data Data Last Documented VS Vital Signs Date Time Temp Pulse Resp B/P (MAP) Pulse Ox O2 Delivery O2 Flow Rate FiO2 12/19/16 11:12 12/19/16 10:35 18 12/19/16 09:25 98 Room Air 12/19/16 08:54 97.7 78 Orders Orders Complete Blood Count With Diff (12/19/16 09:01) Comprehensive Metabolic Panel (12/19/16 09:01) Lipase (12/19/16 09:01) Abdomen, Flat & Upright (12/19/16 ) Iv Access Insert/Monitor (12/19/16 09:01) Ecg Monitoring (12/19/16 09:01) Oximetry (12/19/16 09:01) NPO (12/19/16 09:01) Sodium Chlor 0.9% 1000 Ml Inj (Ns 1000 M (12/19/16 09:01) Ed Urine Pregnancytest Poc (12/19/16 09:01) Ondansetron Inj (Zofran Inj) (12/19/16 09:15) Ketorolac Inj (Toradol Inj) (12/19/16 09:15) Ed Discharge Order (12/19/16 10:56) Labs Laboratory Tests Test 12/19/16 09:26 White Blood Count 12.0 TH/MM3 Red Blood Count 4.41 MIL/MM3 Hemoglobin 13.8 GM/DL Hematocrit 39.3 % Mean Corpuscular Volume 89.1 FL Mean Corpuscular Hemoglobin 31.4 PG Mean Corpuscular Hemoglobin Concent 35.2 % Red Cell Distribution Width 12.5 % Platelet Count 254 TH/MM3 Mean Platelet Volume 7.4 FL Neutrophils (%) (Auto) 84.7 % Lymphocytes (%) (Auto) 10.8 % Monocytes (%) (Auto) 3.7 % Eosinophils (%) (Auto) 0.6 % Basophils (%) (Auto) 0.2 % Neutrophils # (Auto) 10.1 TH/MM3 Lymphocytes # (Auto) 1.3 TH/MM3 Monocytes # (Auto) 0.4 TH/MM3 Eosinophils # (Auto) 0.1 TH/MM3 Basophils # (Auto) 0.0 TH/MM3 CBC Comment DIFF FINAL Differential Comment Blood Urea Nitrogen 13 MG/DL Creatinine 0.86 MG/DL Random Glucose 142 MG/DL Total Protein 7.3 GM/DL Albumin 4.1 GM/DL Calcium Level 8.9 MG/DL Alkaline Phosphatase 59 U/L Aspartate Amino Transf (AST/SGOT) 29 U/L Alanine Aminotransferase (ALT/SGPT) 28 U/L Total Bilirubin 1.0 MG/DL Sodium Level 141 MEQ/L Potassium Level 3.7 MEQ/L Chloride Level 106 MEQ/L Carbon Dioxide Level 23.7 MEQ/L Anion Gap 11 MEQ/L Estimat Glomerular Filtration Rate 80 ML/MIN Lipase 131 U/L [facility] Medical Decision Making Medical Screen Exam Complete: Yes Emergency Medical Condition: Yes Medical Record Reviewed: Yes Differential Diagnosis flu v viral syndrome v pancreatitis v hepatitis Narrative Course cmp neg for hepatitis/pancreatitis, however cbc suggests bacterial source of gastroenteritis Diagnosis Primary Impression: Gastroenteritis Scripts Tramadol (Ultram) 50 Mg Tab 50 MG PO Q6H Y for PAIN, #15 TAB 0 Refills Prov: Nasir Mauro MD 12/19/16 Ciprofloxacin (Cipro) 500 Mg Tab 500 MG PO BID for Infection for 3 Days, #6 TAB 0 Refills Prov: Nasir Mauro MD 12/19/16 Metronidazole (Flagyl) 500 Mg Tab 500 MG PO TID for Infection, #15 TAB 0 Refills Prov: Nasir Mauro MD 12/19/16 Ondansetron Odt (Zofran Odt) 4 Mg Tab 4 MG SL Q6HR Y for Nausea/Vomiting, #20 TAB 0 Refills Prov: Nasir Mauro MD 12/19/16 Disposition: 01 DISCHARGE HOME Condition: Stable Nasir Mauro MD Dec 19, 2016 09:10
[2016-12-19] MEDS ORDERED: ONDANSETRON HCL 4 MG/2 ML VIAL IV PUSH ONE (09:15)
[2016-12-19] MEDS ORDERED: KETOROLAC TROMETHAMINE 30 MG/ML (IVP) VIAL IV PUSH ONE (09:15)
[2016-12-19 09:25] VITALS: O2SAT 98
[2016-12-19 09:42] LABS: AUTOMATED NEUTROPHIL # 10.1 TH/MM3 (1.8-7.7); BASOPHIL % 0.2 % (0.0-2.0); EOSINOPHIL # 0.1 TH/MM3 (0-0.4); EOSINOPHIL % 0.6 % (0.0-4.0); HEMATOCRIT 39.3 % (35.0-46.0); HEMO FLAGS DIFF FINAL; LYMPH % 10.8 % (9.0-44.0); LYMPHOCYTE # 1.3 TH/MM3 (1.0-4.8); MEAN CELL VOLUME 89.1 FL (80.0-100.0); MEAN CORPUSCULAR HEMOGLOBIN 31.4 PG (27.0-34.0); MEAN CORPUSCULAR HGB CONC 35.2 % (32.0-36.0); MONO % 3.7 % (0.0-8.0); NEUT % 84.7 % (16.0-70.0); PLATELET COUNT 254 TH/MM3 (150-450); RED BLOOD COUNT 4.41 MIL/MM3 (4.00-5.30); RED CELL DISTRIBUTION WIDTH 12.5 % (11.6-17.2)
[2016-12-19 09:58] LABS: ANION GAP 11 MEQ/L (5-15); AST (GOT) 29 U/L (15-37); BICARBONATE 23.7 MEQ/L (21.0-32.0); BLOOD UREA NITROGEN 13 MG/DL (7-18); CHLORIDE 106 MEQ/L (98-107); GLOMERULAR FILTRATION RATE 80 ML/MIN (>89); POTASSIUM 3.7 MEQ/L (3.5-5.1); SODIUM (NA) 141 MEQ/L (136-145)
[2016-12-19 09:59] LABS: ALT (GPT) 28 U/L (10-53)
[2016-12-19 10:01] LABS: ALKALINE PHOSPHATASE 59 U/L (45-117)
--- NOTE | 2016-12-19 10:20 | RADRPT ---
EXAM DATE/TIME: 12/19/2016 09:33 [facility] COMPARISON: No previous studies available for comparison. INDICATIONS : Patient states vomiting, and abdominal pain. MEDICAL HISTORY : None. SURGICAL HISTORY : Cholecystectomy. ENCOUNTER: Initial ACUITY: 1 day PAIN SCORE: 8/10 LOCATION: Bilateral Abdomen FINDINGS: Supine and upright views of the abdomen were performed. The abdominal bowel gas pattern is normal. No air fluid levels are seen. No abnormal masses, calcifications, or organomegaly is seen. The visu alized lower lungs are clear. No evidence of free intraperitoneal gas. The osseous structures are u nremarkable. CONCLUSION: Negative for acute process. Nick Will MD FACR on December 19, 2016 at 10:18 Board Certified Radiologist. This report was verified electronically.
[2016-12-19 10:35] VITALS: RESP 18
[2016-12-19] MEDS ORDERED: CIPR-9 PO (10:38)
[2016-12-19] MEDS ORDERED: METR-1 PO (10:38)
[2016-12-19] MEDS ORDERED: ZOFR4TAB3 SL (10:38)
[2016-12-19] MEDS ORDERED: TRAM50 PO (10:38)
== END 2016-12-19 11:21 | disposition home or self-care (01) ==
LOC: NEPD 08:53
DX: K52.9 Noninfective gastroenteritis and colitis, unspecified (principal)
CPT/HCPCS: 74020; 80053; 83690; 84703; 85025; 96361; 96374; 96375; 99284; J1885; J2405; J7030

== ENCOUNTER 2017-03-09 04:17 | Emergency (ER) | payer OTHER, MEDICAID ==
[~2017-03-09] VITALS: Ht 172.7 cm; Wt 54.0 kg
[~2017-03-09 04:17] MED LIST changes: +CIPR-9 PO; +METR-1 PO; +TRAM50 PO
[2017-03-09 04:26] VITALS: BP 118/73; PULSE 91; RESP 18; TEMP 98.2; O2SAT 98
--- NOTE | 2017-03-09 04:53 | PD ---
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 She denies coughing up any blood. She states she cannot be , she has an IUD. PFSH Past Medical History Blood Disorders: No Cancer: No Cardiovascular Problems: No Diminished Hearing: No Endocrine: No Gastrointestinal Disorders: Yes (N/V) Genitourinary: No Immune Disorder: No Implanted Vascular Access Dvce: No Musculoskeletal: Yes (KNEE ISSUES) Neurologic: No Psychiatric: No Reproductive: No Respiratory: No ?: Not : 2 Para: 2 Past Surgical History Cholecystectomy: Yes Other Surgery: No Social History Alcohol Use: Yes (OCC) Tobacco Use: No Substance Use: No Allergies-Medications (Allergen,Severity, Reaction): Coded Allergies: acetaminophen (Verified Allergy, Severe, SEIZURE, 03/09/17) oxycodone (Verified Allergy, Severe, SEIZURE, 03/09/17) Reported Meds & Prescriptions Reported Meds & Active Scripts Active Review of Systems Except as stated in HPI: all other systems reviewed are Neg Physical Exam Narrative GENERAL: The patient is alert, oriented 3 in moderate apparent distress with her left rib pain. Her vital signs are normal. SKIN: Focused skin assessment warm/dry. HEAD: Atraumatic. Normocephalic. EYES: Pupils equal and round. No scleral icterus. No injection or drainage. ENT: No nasal bleeding or discharge. Mucous membranes pink and moist. NECK: Trachea midline. No JVD. CARDIOVASCULAR: Regular rate and rhythm. No murmur appreciated. RESPIRATORY: No accessory muscle use. Clear to auscultation. Breath sounds equal bilaterally. No flail is present. There is point tenderness on the left ninth rib. No crepitus, neither bony nor air is present. GASTROINTESTINAL: Abdomen soft, non-tender, nondistended. Hepatic and splenic margins not palpable. MUSCULOSKELETAL: No obvious deformities. No clubbing. No cyanosis. No edema. NEUROLOGICAL: Awake and alert. No obvious cranial nerve deficits. Motor grossly within normal limits. Normal speech. PSYCHIATRIC: Appropriate mood and affect; insight and judgment normal. Data Data Last Documented VS Vital Signs Date Time Temp Pulse Resp B/P (MAP) Pulse Ox O2 Delivery O2 Flow Rate FiO2 03/09/17 04:26 98.2 91 18 118/73 (88) 98 Orders Orders Ribs, Uni (W/Exp Cxr-Min 3vw) (03/09/17 ) MDM Medical Decision Making Medical Screen Exam Complete: Yes Emergency Medical Condition: Yes Medical Record Reviewed: Yes Interpretation(s) Extremities of the left ribs show no fracture. Differential Diagnosis Flail chest-highly unlikely, fractured rib, pulmonary contusion, pneumothorax Narrative Course The patient has point tenderness on the left ninth rib. The rib is very poorly seen because of poor calcification in this area. It is likely she has an occult rib fracture there. There is no pulmonary contusion or pneumothorax present. Diagnosis Primary Impression: Left rib fracture Additional Instructions: Take the Motrin regularly for about 4 or 5 days. It is one capsule 3 times daily. Usually this calms down the fractured rib. Cough and deep breathe, this is all the lungs cleaned themselves out. Med/Other Pt SpecificInfo: Prescription(s) given Scripts Ibuprofen (Ibuprofen) 600 Mg Tab 600 MG PO TID, #44 TAB 0 Refills Prov: Bunny Condon MD 03/09/17 Disposition: 01 DISCHARGE HOME Condition: Stable Bunny Condon MD Mar 09, 2017 04:53
--- NOTE | 2017-03-09 05:27 | RADRPT ---
EXAM DATE/TIME: 03/09/2017 04:52 [facility] COMPARISON: No previous studies available for comparison. INDICATIONS : Left side rib pain after door slamming on left side and being hit with door handle. MEDICAL HISTORY : None. SURGICAL HISTORY : None. ENCOUNTER: Initial ACUITY: 1 day PAIN SCORE: 7/10 LOCATION: Left posterior ribs. FINDINGS: Multiple views of the left ribs were performed. There is no evidence of displaced fracture. No dest ructive lesions or areas of periosteal thickening are seen. Expiratory view of the chest is negative for pneumothorax. The mediastinal structures are midline. CONCLUSION: No acute disease. Bill Richardson MD on March 09, 2017 at 5:24 Board Certified Radiologist. This report was verified electronically.
[2017-03-09] MEDS ORDERED: IBUP-232 PO (05:47)
[2017-03-09] MEDS ORDERED: IBUPROFEN 600 MG TAB PO ONE (06:00)
== END 2017-03-09 06:11 | disposition home or self-care (01) ==
LOC: PHED 04:17
DX: S22.32XA Fracture of one rib, left side, initial encounter for closed fracture (principal); W22.8XXA Striking against or struck by other objects, initial encounter; Y92.239 Unspecified place in hospital as the place of occurrence of the external cause; Y99.0 Civilian activity done for income or pay
CPT/HCPCS: 71101; 99283

== ENCOUNTER 2017-03-29 02:19 | Emergency (ER) | payer MEDICAID ==
[~2017-03-29] VITALS: Ht 172.7 cm; Wt 53.5 kg
[~2017-03-29 02:19] MED LIST changes: -CIPR-9 PO; -HYDR-3516 PO; +IBUP-232 PO; -METR-1 PO; -TRAM50 PO; -ZOFR4TAB3 SL
[2017-03-29 02:23] VITALS: BP 128/73; PULSE 81; RESP 18; TEMP 97.8; O2SAT 98
[2017-03-29] MEDS ORDERED: SODIUM CHLOR 0.9% 1000 ML INJ 1,000 ML IV SCH (02:38)
--- NOTE | 2017-03-29 02:44 | PD ---
HPI Chief Complaint: Flank/Kidney Pain Time Seen by Provider: 02:27 Travel History International Travel<30 days: No Contact w/Intl Traveler<30days: No Traveled to known affect area: No History of Present Illness HPI The patient is a 26-year-old female who presents emergency department for left flank pain. The patient developed left lower back pain yesterday that is moderate to severe, radiates to the left anterior aspect of the abdomen and is associated with nausea. She also complains of urgency and frequency with urination, denies any actual dysuria or hematuria. She denies any vaginal discharge or bleeding, states she has an IUD in place. She denies any history nephrolithiasis. Symptoms are moderate. There are no current alleviating or exacerbating factors. She does incidentally note she fractured a rib on the left side 2 weeks ago. She denies any cough, chest pain, or shortness of breath. PFSH Past Medical History Blood Disorders: No Cancer: No Cardiovascular Problems: No Diminished Hearing: No Endocrine: No Gastrointestinal Disorders: Yes (N/V) Genitourinary: No Immune Disorder: No Implanted Vascular Access Dvce: No Musculoskeletal: Yes (RIGHT KNEE BRACE S/P SPRAIN: CHILDHOOD) Neurologic: No Psychiatric: No Reproductive: No Respiratory: No Influenza Vaccination: Yes ?: Not LMP: HAS MIRENA IUD SINCE 2014: SPOTTY PERIODS : 2 Para: 2 Ovarian Cysts: Yes Past Surgical History Cholecystectomy: Yes (2017) Other Surgery: No Social History Alcohol Use: Yes ("MAYBE ONCE A YEAR") Tobacco Use: No (QUIT AGE 18) Substance Use: No Allergies-Medications (Allergen,Severity, Reaction): Coded Allergies: acetaminophen (Verified Allergy, Severe, SEIZURE, 03/29/17) oxycodone (Verified Allergy, Severe, SEIZURE, 03/29/17) Reported Meds & Prescriptions Reported Meds & Active Scripts Active Ibuprofen 600 Mg Tab 600 Mg PO TID Review of Systems Except as stated in HPI: all other systems reviewed are Neg General / Constitutional: No: Fever Cardiovascular: No: Chest Pain or Discomfort Respiratory: No: Shortness of Breath Gastrointestinal: Positive: Nausea, Abdominal Pain, No: Vomiting, Diarrhea Genitourinary: Positive: Urgency, Frequency, Flank Pain, No: Dysuria, Hematuria , Discharge, Vaginal Bleeding Skin: No Rash Physical Exam Narrative GENERAL: Awake, alert, 26 year-old female who appears her stated age is in no acute respiratory distress. SKIN: Focused skin assessment warm/dry. HEAD: Atraumatic. Normocephalic. EYES: Pupils equal and round. No scleral icterus. No injection or drainage. ENT: No nasal bleeding or discharge. Mucous membranes pink and moist. NECK: Trachea midline. No JVD. CARDIOVASCULAR: Regular rate and rhythm. No murmur appreciated. RESPIRATORY: No accessory muscle use. Clear to auscultation. Breath sounds equal bilaterally. GASTROINTESTINAL: Abdomen soft, mild left lower quadrant tenderness. No guarding or rigidity. Back: Left CVA tenderness. MUSCULOSKELETAL: No obvious deformities. No clubbing. No cyanosis. No edema. NEUROLOGICAL: Awake and alert. No obvious cranial nerve deficits. Motor grossly within normal limits. Normal speech. PSYCHIATRIC: Appropriate mood and affect; insight and judgment normal. Data Data Last Documented VS Vital Signs Date Time Temp Pulse Resp B/P (MAP) Pulse Ox O2 Delivery O2 Flow Rate FiO2 03/29/17 04:05 88 140/81 (100) 100 Room Air 03/29/17 03:37 16 03/29/17 02:23 97.8 Orders Orders Complete Blood Count With Diff (03/29/17 02:38) Comprehensive Metabolic Panel (03/29/17 02:38) Lipase (03/29/17 02:38) Urinalysis - C+S If Indicated (03/29/17 02:38) Ct Abd/Pel W/O Iv Contrast (03/29/17 02:38) Iv Access Insert/Monitor (03/29/17 02:38) Ecg Monitoring (03/29/17 02:38) Oximetry (03/29/17 02:38) Morphine Inj (Morphine Inj) (03/29/17 02:45) Ondansetron Inj (Zofran Inj) (03/29/17 02:45) Sodium Chlor 0.9% 1000 Ml Inj (Ns 1000 M (03/29/17 02:38) Sodium Chloride 0.9% Flush (Ns Flush) (03/29/17 02:45) Ketorolac Inj (Toradol Inj) (03/29/17 02:45) Ed Urine Pregnancytest Poc (03/29/17 02:38) Us Pelvis Comp W Doppler (03/29/17 04:05) Morphine Inj (Morphine Inj) (03/29/17 04:15) Labs Laboratory Tests Test 03/29/17 02:40 03/29/17 02:45 Urine Color YELLOW Urine Turbidity CLEAR Urine pH 6.0 Urine Specific [place] 1.006 Urine Protein NEG mg/dL Urine Glucose (UA) NEG mg/dL Urine Ketones NEG mg/dL Urine Occult Blood NEG Urine Nitrite NEG Urine Bilirubin NEG Urine Leukocyte Esterase NEG Urine WBC 0-2 /hpf Urine Squamous Epithelial Cells 0-5 /hpf Urine Mucus FEW /lpf Microscopic Urinalysis Comment CULT NOT INDICATED White Blood Count 9.7 TH/MM3 Red Blood Count 4.48 MIL/MM3 Hemoglobin 13.8 GM/DL Hematocrit 39.6 % Mean Corpuscular Volume 88.4 FL Mean Corpuscular Hemoglobin 30.7 PG Mean Corpuscular Hemoglobin Concent 34.7 % Red Cell Distribution Width 11.9 % Platelet Count 300 TH/MM3 Mean Platelet Volume 7.6 FL Neutrophils (%) (Auto) 59.6 % Lymphocytes (%) (Auto) 31.6 % Monocytes (%) (Auto) 5.0 % Eosinophils (%) (Auto) 3.1 % Basophils (%) (Auto) 0.7 % Neutrophils # (Auto) 5.7 TH/MM3 Lymphocytes # (Auto) 3.1 TH/MM3 Monocytes # (Auto) 0.5 TH/MM3 Eosinophils # (Auto) 0.3 TH/MM3 Basophils # (Auto) 0.1 TH/MM3 CBC Comment DIFF FINAL Differential Comment Blood Urea Nitrogen 6 MG/DL Creatinine 0.77 MG/DL Random Glucose 96 MG/DL Total Protein 7.4 GM/DL Albumin 3.8 GM/DL Calcium Level 8.9 MG/DL Alkaline Phosphatase 61 U/L Aspartate Amino Transf (AST/SGOT) 14 U/L Alanine Aminotransferase (ALT/SGPT) 13 U/L Total Bilirubin 0.8 MG/DL Sodium Level 138 MEQ/L Potassium Level 3.5 MEQ/L Chloride Level 104 MEQ/L Carbon Dioxide Level 28.1 MEQ/L Anion Gap 6 MEQ/L Estimat Glomerular Filtration Rate 91 ML/MIN Lipase 163 U/L [facility] Medical Decision Making Medical Screen Exam Complete: Yes Emergency Medical Condition: Yes Medical Record Reviewed: Yes Interpretation(s) Laboratory Tests Test 03/29/17 02:40 03/29/17 02:45 Urine Color YELLOW Urine Turbidity CLEAR Urine pH 6.0 Urine Specific [place] 1.006 Urine Protein NEG mg/dL Urine Glucose (UA) NEG mg/dL Urine Ketones NEG mg/dL Urine Occult Blood NEG Urine Nitrite NEG Urine Bilirubin NEG Urine Leukocyte Esterase NEG Urine WBC 0-2 /hpf Urine Squamous Epithelial Cells 0-5 /hpf Urine Mucus FEW /lpf Microscopic Urinalysis Comment CULT NOT INDICATED White Blood Count 9.7 TH/MM3 Red Blood Count 4.48 MIL/MM3 Hemoglobin 13.8 GM/DL Hematocrit 39.6 % Mean Corpuscular Volume 88.4 FL Mean Corpuscular Hemoglobin 30.7 PG Mean Corpuscular Hemoglobin Concent 34.7 % Red Cell Distribution Width 11.9 % Platelet Count 300 TH/MM3 Mean Platelet Volume 7.6 FL Neutrophils (%) (Auto) 59.6 % Lymphocytes (%) (Auto) 31.6 % Monocytes (%) (Auto) 5.0 % Eosinophils (%) (Auto) 3.1 % Basophils (%) (Auto) 0.7 % Neutrophils # (Auto) 5.7 TH/MM3 Lymphocytes # (Auto) 3.1 TH/MM3 Monocytes # (Auto) 0.5 TH/MM3 Eosinophils # (Auto) 0.3 TH/MM3 Basophils # (Auto) 0.1 TH/MM3 CBC Comment DIFF FINAL Differential Comment Blood Urea Nitrogen 6 MG/DL Creatinine 0.77 MG/DL Random Glucose 96 MG/DL Total Protein 7.4 GM/DL Albumin 3.8 GM/DL Calcium Level 8.9 MG/DL Alkaline Phosphatase 61 U/L Aspartate Amino Transf (AST/SGOT) 14 U/L Alanine Aminotransferase (ALT/SGPT) 13 U/L Total Bilirubin 0.8 MG/DL Sodium Level 138 MEQ/L Potassium Level 3.5 MEQ/L Chloride Level 104 MEQ/L Carbon Dioxide Level 28.1 MEQ/L Anion Gap 6 MEQ/L Estimat Glomerular Filtration Rate 91 ML/MIN Lipase 163 U/L Last Impressions Abdomen/Pelvis CT 03/29/17 0238 Signed Impressions: Service Date/Time: Wednesday, March 29, 2017 03:26 - CONCLUSION: Unremarkable exam. The kidneys are within normal limits with no renal calculi, inflammatory change or obstruction. Nir Duran MD Ultrasound pelvis reveals intrauterine device in the endometrium. The uterus and ovaries are otherwise unremarkable. Small amount of fluid in the cul-de- sac which could be physiologic finding a female patient this age. Differential Diagnosis Differential diagnosis includes nephrolithiasis, pyelonephritis, UTI, ovarian torsion, ovarian cyst, PID, cervicitis, diverticulitis, ectopic . Narrative Course IV was established, labs are drawn and sent, and the patient was placed on cardiac telemetry monitoring and continuous pulse oximetry monitoring. The patient was administered morphine, Zofran, Toradol, and IV fluids. UA was sent to lab. Noncontrast CT of the abdomen and pelvis was performed to evaluate for nephrolithiasis. Bedside UA test was negative. UA is unremarkable. CBC and CMP are unremarkable. CT the abdomen and pelvis was negative. The patient was reevaluated, continued to have pain. The patient was administered a second dose of morphine and ultrasound of the pelvis was ordered to evaluate for possible ovarian torsion and/or cyst. Ultrasound was negative except for physiologic free fluid in the cul-de-sac, ovaries with within normal limits. The patient was reevaluated at 5 AM, her pain has significantly improved. The patient will be discharged home on pain medications. She is advised to return if symptoms worsen or progress. Diagnosis Primary Impression: Flank pain Patient Instructions: General Instructions Additional Instructions: Medications as directed. Follow-up with your primary physician. Work excuse for 2 days. Please provide the patient a copy of her ultrasound results, CT results, and lab results at discharge. Med/Other Pt SpecificInfo: Prescription(s) given Scripts Tramadol (Tramadol) 50 Mg Tab 50 MG PO Q6H Y for PAIN, #15 TAB 0 Refills Prov: Jason Armenta MD 03/29/17 Ibuprofen (Ibuprofen) 600 Mg Tab 600 MG PO Q6H Y for Pain/Inflammation, #20 TAB 0 Refills Prov: Jason Armenta MD 03/29/17 Disposition: DISCHARGE HOME Condition: Stable Jason Armenta MD Mar 29, 2017 02:44
[2017-03-29] MEDS ORDERED: SODIUM CHLORIDE 0.9% FLUSH 10 ML FLUSH IV FLUSH PRN (02:45)
[2017-03-29] MEDS ORDERED: ONDANSETRON HCL 4 MG/2 ML VIAL IVP ONE (02:45)
[2017-03-29] MEDS ORDERED: KETOROLAC TROMETHAMINE 30 MG/ML (IVP) VIAL IVP ONE (02:45)
[2017-03-29] MEDS ORDERED: MORPHINE SULFATE 4 MG/ML INJ IV PUSH ONE ×2 (02:45→04:15)
[2017-03-29 02:53] LABS: BILIRUBIN, URINE NEG (NEG); BLOOD, URINE NEG (NEG); GLUCOSE,URINE NEG (NEG); KETONE, URINE NEG (NEG); NITRITE,URINE NEG (NEG); URINE LEUKOCYTE ESTERASE NEG (NEG)
[2017-03-29 02:53] LABS: AUTOMATED NEUTROPHIL # 5.7 TH/MM3 (1.8-7.7); BASOPHIL # 0.1 TH/MM3 (0-0.2); BASOPHIL % 0.7 % (0.0-2.0); EOSINOPHIL # 0.3 TH/MM3 (0-0.4); EOSINOPHIL % 3.1 % (0.0-4.0); HEMATOCRIT 39.6 % (35.0-46.0); HEMOGLOBIN 13.8 GM/DL (11.6-15.3); LYMPH % 31.6 % (9.0-44.0); LYMPHOCYTE # 3.1 TH/MM3 (1.0-4.8); MEAN CELL VOLUME 88.4 FL (80.0-100.0); MEAN CORPUSCULAR HEMOGLOBIN 30.7 PG (27.0-34.0); MEAN CORPUSCULAR HGB CONC 34.7 % (32.0-36.0); MEAN PLATELET VOLUME 7.6 FL (7.0-11.0); MONOCYTE # 0.5 TH/MM3 (0-0.9); NEUT % 59.6 % (16.0-70.0); PLATELET COUNT 300 TH/MM3 (150-450); RED BLOOD COUNT 4.48 MIL/MM3 (4.00-5.30); RED CELL DISTRIBUTION WIDTH 11.9 % (11.6-17.2); WHITE BLOOD COUNT 9.7 TH/MM3 (4.0-11.0)
[2017-03-29 02:57] VITALS: PULSE 83; O2SAT 99
[2017-03-29 03:02] LABS: MUCUS URINE FEW /lpf (OCC); SQUAMOUS EPITHELIAL CELL URINE 0-5 /hpf (0-5); URINE COLOR YELLOW (YELLW/STRAW)
[2017-03-29 03:03] LABS: WBC, URINE 0-2 /hpf (0-5)
[2017-03-29 03:04] LABS: CHLORIDE 104 MEQ/L (98-107); SODIUM (NA) 138 MEQ/L (136-145)
[2017-03-29 03:07] LABS: CALCIUM 8.9 MG/DL (8.5-10.1)
[2017-03-29 03:08] LABS: ALBUMIN 3.8 GM/DL (3.4-5.0); BICARBONATE 28.1 MEQ/L (21.0-32.0); BLOOD UREA NITROGEN 6 MG/DL (7-18); GLUCOSE,RANDOM 96 MG/DL (74-106)
[2017-03-29 03:11] LABS: ALT (GPT) 13 U/L (10-53); AST (GOT) 14 U/L (15-37); CREATININE 0.77 MG/DL (0.50-1.00); GLOMERULAR FILTRATION RATE 91 ML/MIN (>89)
[2017-03-29 03:12] LABS: TOTAL BILIRUBIN ADULT 0.8 MG/DL (0.2-1.0); TOTAL PROTEIN 7.4 GM/DL (6.4-8.2)
[2017-03-29 03:13] LABS: ALKALINE PHOSPHATASE 61 U/L (45-117)
[2017-03-29 03:37] VITALS: BP 117/77; PULSE 59; RESP 16; O2SAT 100
--- NOTE | 2017-03-29 04:04 | RADRPT ---
EXAM DATE/TIME: 03/29/2017 03:26 [facility] COMPARISON: No previous studies available for comparison. INDICATIONS : Left flank pain. ORAL CONTRAST: No oral contrast ingested. RADIATION DOSE: 6.65 CTDIvol (mGy) MEDICAL HISTORY : None SURGICAL HISTORY : Cholecystectomy. ENCOUNTER: Initial ACUITY: 1 day PAIN SCALE: 6/10 LOCATION: Left flank TECHNIQUE: Volumetric scanning of the abdomen and pelvis was performed. Using automated exposure control and ad justment of the mA and/or kV according to patient size, radiation dose was kept as low as reasonably achievable to obtain optimal diagnostic quality images. DICOM format image data is available electro nically for review and comparison. FINDINGS: LOWER LUNGS: The visualized lower lungs are clear. LIVER: Homogeneous density without lesion. There is no dilation of the biliary tree. No calcified gallston es. SPLEEN: Normal size without lesion. PANCREAS: Within normal limits. KIDNEYS: Normal in size and shape. There is no mass, stone, or hydronephrosis. ADRENAL GLANDS: Within normal limits. VASCULAR: There is no aortic aneurysm. BOWEL/MESENTERY: The stomach, small bowel, and colon demonstrate no acute abnormality. There is no free intraperitone al air or fluid. ABDOMINAL WALL: Within normal limits. RETROPERITONEUM: There is no lymphadenopathy. BLADDER: No wall thickening or mass. REPRODUCTIVE: Within normal limits. Intrauterine device is present. INGUINAL: There is no lymphadenopathy or hernia. MUSCULOSKELETAL: Within normal limits for patient age. CONCLUSION: Unremarkable exam. The kidneys are within normal limits with no renal calculi, inflam matory change or obstruction. Nir Duran MD on March 29, 2017 at 4:01 Board Certified Radiologist. This report was verified electronically.
[2017-03-29 04:05] VITALS: BP 140/81; PULSE 88; O2SAT 100
--- NOTE | 2017-03-29 04:58 | RADRPT ---
EXAM DATE/TIME: 03/29/2017 04:25 [facility] COMPARISON: CT ABDOMEN & PELVIS W/O CONTRAST, March 29, 2017, 3:26. US PELVIS,COMP,W DOPPLER, June 30, 2016, 2 1:54. INDICATIONS : Pelvic pain. MEDICAL HISTORY : Ovarian cysts. Pelvic pain. SURGICAL HISTORY : Cholecystectomy. IUD placement. ENCOUNTER: Initial ACUITY: 1 day PAIN SCORE: 9/10 LOCATION: Bilateral pelvis MEASUREMENTS: UTERUS: 8.5 x 4.2 x 6.4 cm ENDOMETRIAL STRIPE: 17 mm RIGHT OVARY: 3.8 x 1.9 x 2.5 cm LEFT OVARY: 2.1 x 2.3 x 2.4 cm FINDINGS: UTERUS: The myometrium has homogeneous echotexture without mass. Intrauterine device is present in the endom etrium. RIGHT OVARY: Ovary contains no mass or significant cystic lesion. LEFT OVARY: Ovary contains no mass or significant cystic lesion. MISCELLANEOUS: Small amount of fluid in the cul-de-sac. CONCLUSION: 1. Intrauterine device in the endometrium. 2. The uterus and ovaries are otherwise unremarkable. 3. Small amount of fluid in the cul-de-sac which could be a physiologic finding in a female patient t his age. Nir Duran MD on March 29, 2017 at 4:55 Board Certified Radiologist. This report was verified electronically.
[2017-03-29] MEDS ORDERED: IBUP-232 PO (05:06)
[2017-03-29] MEDS ORDERED: TRAM50TA PO (05:06)
[2017-03-29 05:17] VITALS: BP 138/76
== END 2017-03-29 05:18 | disposition home or self-care (01) ==
LOC: PHED 02:19
DX: R10.9 Unspecified abdominal pain (principal); Z88.6 Allergy status to analgesic agent; Z88.5 Allergy status to narcotic agent
CPT/HCPCS: 74176; 76856; 80053; 81001; 83690; 84703; 85025; 93975; 96361; 96374; 96375; 96376; 99284; J1885; J2270; J2405; J7030

== ENCOUNTER 2017-07-29 14:30 | Emergency (ER) | payer MEDICAID ==
[~2017-07-29] VITALS: Ht 172.7 cm; Wt 60.0 kg
[~2017-07-29 14:30] MED LIST changes: +TRAM50TA PO
[2017-07-29 14:34] VITALS: BP 122/72; PULSE 101; RESP 24; TEMP 97.7; O2SAT 99
[2017-07-30] MEDS ORDERED: VIST50CA PO (00:18)
--- NOTE | 2017-07-30 14:07 | EKG ---
Date Performed: 07/29/2017 Time Performed: 14:46:08 PTAGE: 26 years EKG: Sinus rhythm POSSIBLE LEFT ATRIAL ENLARGEMENT POSSIBLE RIGHT VENTRICULAR CONDUCTION DELAY BORDERLINE ECG Compared to PREVIOUS TRACING , left atrial abnormality new PREVIOUS TRACIN12/09/2015 09.52 DOCTOR: Derick Villa Interpretating Date/Time 07/30/2017 14:05:23
== END 2017-07-29 15:50 | disposition left against medical advice (07) ==
LOC: NED 14:30
DX: R07.9 Chest pain, unspecified (principal)
CPT/HCPCS: 93005; 99281

== ENCOUNTER 2017-07-29 23:03 | Emergency (ER) | payer MEDICAID ==
[2017-07-29 23:15] VITALS: BP 121/70; PULSE 95; RESP 18; O2SAT 100
[2017-07-29 23:26] VITALS: RESP 18; O2SAT 100
[2017-07-29 23:52] LABS: AUTOMATED NEUTROPHIL # 6.3 TH/MM3 (1.8-7.7); BASOPHIL % 0.2 % (0.0-2.0); EOSINOPHIL % 0.5 % (0.0-4.0); HEMATOCRIT 40.8 % (35.0-46.0); HEMOGLOBIN 13.7 GM/DL (11.6-15.3); LYMPH % 15.6 % (9.0-44.0); LYMPHOCYTE # 1.2 TH/MM3 (1.0-4.8); MEAN CORPUSCULAR HEMOGLOBIN 30.9 PG (27.0-34.0); MEAN CORPUSCULAR HGB CONC 33.6 % (32.0-36.0); MEAN PLATELET VOLUME 7.1 FL (7.0-11.0); MONO % 4.3 % (0.0-8.0); MONOCYTE # 0.3 TH/MM3 (0-0.9); NEUT % 79.4 % (16.0-70.0); PLATELET COUNT 262 TH/MM3 (150-450); RED BLOOD COUNT 4.43 MIL/MM3 (4.00-5.30); RED CELL DISTRIBUTION WIDTH 11.6 % (11.6-17.2); WHITE BLOOD COUNT 7.8 TH/MM3 (4.0-11.0)
--- NOTE | 2017-07-29 23:52 | RADRPT ---
EXAM DATE: 07/29/2017 11:45 PM EDT AGE/SEX: 26 years / Female INDICATIONS: Mid chest pain. CLINICAL DATA: This is the patient's initial encounter. Patient reports that signs and symptoms have been present for 1 day and indicates a pain score of 6/10. MEDICAL/SURGICAL HISTORY: None. None. COMPARISON: No prior exams available for comparison. FINDINGS: A single AP view of the chest demonstrates the lungs to be symmetrically aerated without evidence of mass, infiltrate or effusion. The cardiomediastinal contours are unremarkable. Osseous structures a re intact. There are multiple overlying electrical artery gram leads. CONCLUSION: No acute cardiopulmonary disease. Electronically signed by: Nir Duran MD 07/29/2017 11:51 PM EDT
[2017-07-30] LABS: CHLORIDE 104 MEQ/L (98-107); SODIUM (NA) 139 MEQ/L (136-145)
[2017-07-30] MEDS ORDERED: LORazepam 2 MG/ML VIAL IV PUSH SCH
[2017-07-30 00:03] LABS: BLOOD UREA NITROGEN 8 MG/DL (7-18); CALCIUM 8.8 MG/DL (8.5-10.1); GLUCOSE,RANDOM 102 MG/DL (74-106)
[2017-07-30 00:07] LABS: CREATININE 0.71 MG/DL (0.50-1.00); GLOMERULAR FILTRATION RATE 100 ML/MIN (>89)
[2017-07-30 00:11] LABS: TROPONIN I LESS THAN 0.02 NG/ML (0.02-0.05)
[2017-07-30] MEDS ORDERED: VIST50CA PO (00:18)
--- NOTE | 2017-07-30 00:19 | PD ---
HPI . Chest pain Chief Complaint: Chest Pain Time Seen by Provider: 23:42 Travel History International Travel<30 days: No Contact w/Intl Traveler<30days: No Traveled to known affect area: No History of Present Illness HPI Patient presents with a chief complaint of chest pain. Onset was 12 hours ago. It is continuous. It is a pressure-like sensation. It is rated 6/10. She states that she received some bad news last night and that her pain today seems to be worse when she thinks about things. In addition to chest pain, she has nausea, vomiting, dizziness and palpitations. She states that she has had a previous panic attack but that it has been some years ago. PFSH Past Medical History Narrative Medical No chronic medical problems. Blood Disorders: No Cancer: No Cardiovascular Problems: No Diminished Hearing: No Endocrine: No Gastrointestinal Disorders: Yes (N/V) Genitourinary: No Immune Disorder: No Implanted Vascular Access Dvce: No Musculoskeletal: Yes (RIGHT KNEE BRACE S/P SPRAIN: CHILDHOOD) Neurologic: No Psychiatric: No Reproductive: No Respiratory: No Tetanus Vaccination: < 5 Years Influenza Vaccination: Yes ?: Not : 2 Para: 2 Ovarian Cysts: Yes Past Surgical History Cholecystectomy: Yes (2017) Other Surgery: No Social History Alcohol Use: Yes ("MAYBE ONCE A YEAR") Tobacco Use: No (QUIT AGE 18) Substance Use: No Allergies-Medications (Allergen,Severity, Reaction): Coded Allergies: acetaminophen (Verified Allergy, Severe, SEIZURE, 03/29/17) oxycodone (Verified Allergy, Severe, SEIZURE, 03/29/17) Reported Meds & Prescriptions Reported Meds & Active Scripts Active Tramadol (Tramadol HCl) 50 Mg Tab 50 Mg PO Q6H PRN Ibuprofen 600 Mg Tab 600 Mg PO Q6H PRN Ibuprofen 600 Mg Tab 600 Mg PO TID Review of Systems Except as stated in HPI: all other systems reviewed are Neg Physical Exam Narrative GENERAL: The patient is anxious and tearful. SKIN: warm/dry. HEAD: Normocephalic. Atraumatic. EYES: Pupils equal and round. Extraocular movements are intact. ENT: Mucous membranes pink and moist. NECK: Supple. Full range of motion without pain.. CARDIOVASCULAR: Regular rate and rhythm. Heart sounds normal. RESPIRATORY: No accessory muscle use. Clear to auscultation. Breath sounds equal bilaterally. Positive chest wall tenderness. GASTROINTESTINAL: Abdomen soft. Nontender. Bowel sounds present. Nondistended. MUSCULOSKELETAL: No obvious deformities. Normal muscle tone. NEUROLOGICAL: Awake and alert. No obvious cranial nerve deficits. Motor grossly within normal limits. Normal speech. PSYCHIATRIC: Tearful. Anxious. Data Data Last Documented VS Vital Signs Date Time Temp Pulse Resp B/P (MAP) Pulse Ox O2 Delivery O2 Flow Rate FiO2 07/29/17 23:26 18 100 Room Air 07/29/17 23:15 95 121/70 (87) Orders Orders Electrocardiogram (07/29/17 23:24) Complete Blood Count With Diff (07/29/17 23:24) Basic Metabolic Panel (Bmp) (07/29/17 23:24) Ckmb (Isoenzyme) Profile (07/29/17 23:24) Troponin I (07/29/17 23:24) Chest, Single Ap (07/29/17 23:24) Iv Access Insert/Monitor (07/29/17 23:24) Ecg Monitoring (07/29/17 23:24) Oximetry (07/29/17 23:24) D-Dimer (07/29/17 23:35) Lorazepam Inj (Ativan Inj) (07/30/17 00:00) Labs Laboratory Tests Test 07/29/17 23:44 White Blood Count 7.8 TH/MM3 Red Blood Count 4.43 MIL/MM3 Hemoglobin 13.7 GM/DL Hematocrit 40.8 % Mean Corpuscular Volume 92.0 FL Mean Corpuscular Hemoglobin 30.9 PG Mean Corpuscular Hemoglobin Concent 33.6 % Red Cell Distribution Width 11.6 % Platelet Count 262 TH/MM3 Mean Platelet Volume 7.1 FL Neutrophils (%) (Auto) 79.4 % Lymphocytes (%) (Auto) 15.6 % Monocytes (%) (Auto) 4.3 % Eosinophils (%) (Auto) 0.5 % Basophils (%) (Auto) 0.2 % Neutrophils # (Auto) 6.3 TH/MM3 Lymphocytes # (Auto) 1.2 TH/MM3 Monocytes # (Auto) 0.3 TH/MM3 Eosinophils # (Auto) 0.0 TH/MM3 Basophils # (Auto) 0.0 TH/MM3 CBC Comment DIFF FINAL Differential Comment D-Dimer Quantitative (PE/DVT) 0.20 MG/L FEU Blood Urea Nitrogen 8 MG/DL Creatinine 0.71 MG/DL Random Glucose 102 MG/DL Calcium Level 8.8 MG/DL Sodium Level 139 MEQ/L Potassium Level 3.7 MEQ/L Chloride Level 104 MEQ/L Carbon Dioxide Level 26.0 MEQ/L Anion Gap 9 MEQ/L Estimat Glomerular Filtration Rate 100 ML/MIN Total Creatine Kinase 89 U/L Troponin I LESS THAN 0.02 NG/ML MDM Medical Decision Making Medical Screen Exam Complete: Yes Emergency Medical Condition: Yes Interpretation(s) EKG shows a normal sinus rhythm with no acute ischemic change Differential Diagnosis Differential diagnosis of chest pain includes but is not limited to musculoskeletal pain, pulmonary embolism, acute coronary syndrome, pneumonia, pleurisy Narrative Course This patient presents with chest pain for the last 12 hours. She states that her pain started after she heard some bad news. Pain is exacerbated by thinking about the bad news. This is a young, healthy patient. Last Impressions Chest X-Ray 07/29/17 [id number] Signed Impressions: CONCLUSION: No acute cardiopulmonary disease. CBC & BMP Diagram 07/29/17 23:44 Calcium Level 8.8 D-dimer 0.20. Troponin less than 0.02. The most likely etiology for this patient's chest pain is anxiety. She will be discharged home. Diagnosis Primary Impression: Chest pain Qualified Codes: R07.9 - Chest pain, unspecified Additional Impression: Anxiety Patient Instructions: Anxiety (DC), General Instructions Med/Other Pt SpecificInfo: Prescription(s) given Scripts Hydroxyzine Pamoate (Vistaril) 50 Mg Cap 50 MG PO QID Y for anxiety, #10 CAP 0 Refills Prov: Pamela Arnold MD 07/30/17 Disposition: 01 DISCHARGE HOME Condition: Stable Pamela Arnold MD Jul 30, 2017 00:19
--- NOTE | 2017-07-30 14:07 | EKG ---
Date Performed: 07/29/2017 Time Performed: 23:31:17 PTAGE: 26 years EKG: Sinus rhythm POSSIBLE RIGHT VENTRICULAR CONDUCTION DELAY BORDERLINE ECG Left atrial abnormality not apparent comp ared to prior. PREVIOUS TRACING : 07/29/2017 14.46 DOCTOR: Derick Villa Interpretating Date/Time 07/30/2017 14:05:47
== END 2017-07-30 00:34 | disposition home or self-care (01) ==
LOC: PHED 23:03
DX: R07.9 Chest pain, unspecified (principal); F41.9 Anxiety disorder, unspecified; R00.2 Palpitations; R42 Dizziness and giddiness; R11.2 Nausea with vomiting, unspecified; R94.31 Abnormal electrocardiogram [ECG] [EKG]
CPT/HCPCS: 71045; 80048; 82550; 84484; 85025; 85379; 93005; 96374; 99285; J2060